=== PATIENT | male | born 1975 ===

== ENCOUNTER 2017-03-01 14:23 | Inpatient (IN) | payer SELFPAY ==
[2017-03-01 14:33] VITALS: BMI 31.6
--- NOTE | 2017-03-01 14:46 | ED PDOC ---
HPI: General Adult Time Seen by Provider: 03/01/17 14:35 Chief Complaint (Nursing): Abdominal Pain Chief Complaint (Provider): abdominal pain History Per: Patient History/Exam Limitations: no limitations Additional Complaint(s): 41yo male comes to the ED complaining of abdominal pain since this morning. Also reports an episode of abdominal pain yesterday which resolved with prilosec. He reports non-bloody vomit 5x episodes, last occurring while enroute to ED. Denies diarrhea, fever, sweats, chills, constipation, urinary symptoms, testicular pain, rectal pain. He took Prilosec, Mylanta & Advil today which didn 't help. Past Medical History Reviewed: Historical Data, Nursing Documentation, Vital Signs Vital Signs: Last Vital Signs Temp 98 F 03/01/17 19:58 Pulse 92 H 03/01/17 19:58 Resp 18 03/01/17 19:58 BP 145/60 03/01/17 19:58 Pulse Ox 99 03/01/17 19:53 - Medical History PMH: Gastritis - Surgical History Surgical History: No Surg Hx - Family History Family History: States: Unknown Family Hx - Living Arrangements Living Arrangements: With Family - Social History Current smoker - smoking cessation education provided: No Alcohol: None - Home Medications Home Medications: Ambulatory Orders Medication Instructions Recorded No Known Home Med 03/01/17 - Allergies Allergies/Adverse Reactions: Allergies Allergy/AdvReac Type Severity Reaction Status Date / Time No Known Allergies Allergy Verified 03/01/17 14:31 Review of Systems ROS Statement: Except As Marked, All Systems Reviewed And Found Negative Constitutional: Negative for: Fever, Chills, Sweats Gastrointestinal: Positive for: Nausea, Vomiting, Abdominal Pain. Negative for : Diarrhea, Constipation, Rectal Pain Genitourinary Male: Negative for: Dysuria, Hematuria, Scrotal Pain, Penile Pain Physical Exam - Reviewed Nursing Documentation Reviewed: Yes Vital Signs Reviewed: Yes - Physical Exam Appears: Positive for: Non-toxic (+moderate painful distress), Uncomfortable Head Exam: Positive for: ATRAUMATIC, NORMAL INSPECTION, NORMOCEPHALIC Skin: Positive for: Warm, Dry Eye Exam: Positive for: EOMI, PERRL ENT: Positive for: Other (tacky mucous membranes.) Cardiovascular/Chest: Positive for: Regular Rate, Rhythm Respiratory: Positive for: Normal Breath Sounds. Negative for: Rales, Rhonchi, Wheezing Gastrointestinal/Abdominal: Positive for: Distended (mild), Guarding (voluntary) , Other (pain is not localizable. +Psoas. -Obturator). Negative for: Mass, Rebound Back: Negative for: L CVA Tenderness, R CVA Tenderness Extremity: Positive for: Normal ROM Neurologic/Psych: Positive for: Alert, Oriented (x3) - Laboratory Results Result Diagrams: 03/01/17 15:30 03/01/17 15:30 - ECG O2 Sat by Pulse Oximetry: 100 Medical Decision Making Medical Decision Makin impression abdominal pain Differential includes obstruction, gastroenteritis, gastritis, appendicitis, diverticulitis, colitis, electrolyte abnormality. Others considered and not listed here. Plan: XR Obstructive Series CT Abd/pel w/ Labs Dextrose Zofran Morphine reassess Labs demonstrate leukocytosis, marked pancreatitis, elevated transaminases and hyperbilirubinemia. LDH added. US also ordered for clinical gallstone pancreatitis. Zosyn ordered. Will need admission for management. Pain slightly improved with medications. 5p LDH elevated as well. Pt still pending US and CT. NELSON Guillory Hospitalist and Dr Bender GI oncall. DW Dr Saeed and Dr Roger Surgery Accession No. : [id number] Patient Name / ID : ALEXYS BEE / [id number] Exam Date : 03/01/2017 18:17:23 ( Approved ) Study Comment : Sex / Age : M / 41Y Creator : Jarad Nelson MD Dictator : Jarad Nelson MD Performing Artist : Teaching Young : Jarad Nelson MD Approver2 : Report Date : 03/01/2017 18:56:06 My Comment : PROCEDURE: CT Abdomen and Pelvis with contrast HISTORY: abd pain COMPARISON: None. TECHNIQUE: Contrast dose: 95 mL Omnipaque 300 Radiation dose: Total exam DLP = 1022.12 mGy-cm. This CT exam was performed using one or more of the following dose reduction techniques: Automated exposure control, adjustment of the mA and/or kV according to patient size, and/or use of iterative reconstruction technique. FINDINGS: LOWER THORAX: Minimal subsegmental atelectasis both lower lobes. LIVER: Diffusely diminished attenuation consistent with fatty infiltration. No mass. No biliary dilatation. Smooth contour. Normal size. GALLBLADDER AND BILE DUCTS: Unremarkable. PANCREAS: No mass. Infiltration of the peripancreatic soft tissues without malachi peripancreatic fluid, consistent with acute pancreatitis. No pancreatic ductal dilatation. SPLEEN: Unremarkable. ADRENALS: Unremarkable. No mass. KIDNEYS AND URETERS: Unremarkable. No hydronephrosis. No solid mass. VASCULATURE: Unremarkable. No aortic aneurysm. BOWEL: No evidence of bowel obstruction. There is a filling defect in the 2nd portion of the duodenum in the expected location of the ampulla. This appears enlarged and may reflect edema resulting from pancreatitis. However, neoplasm cannot be ruled out. Recommend evaluation with endoscopy when clinically feasible. APPENDIX: Normal appendix. PERITONEUM: Unremarkable. No free fluid. No free air. LYMPH NODES: Unremarkable. No enlarged lymph nodes. BLADDER: Unremarkable. REPRODUCTIVE: Normal prostate BONES: No acute fracture. OTHER FINDINGS: None. IMPRESSION: Findings consistent with acute pancreatitis. No peripancreatic fluid collection. Filling defect in the 2nd portion of the duodenum may represent an edematous ampulla but the possibility of a mass must also be considered. Recommend endoscopy when clinically feasible. . Fatty infiltration of the liver. No other significant abnormality. ED OBSERVATION Date of observation admission: 03/01/17 Time of observation admission: 14:56 Disposition - Clinical Impression Clinical Impression: Pancreatitis, Cholelithiasis - Disposition Disposition Time: 15:00 Condition: FAIR - Pt Status Changed To: Hospital Disposition Of: Inpatient - Admit Certification Admit to Inpatient:: After my assessment, the patient will require hospitalization for at least two midnights. This is because of the severity of symptoms shown, intensity of services needed, and/or the medical risk in this patient being treated as an outpatient. - POA Present On Arrival: None Additional Comments - Additional Comments Additional Comments: Scribe Attestation: Documented by Alcides Monahan acting as a scribe for Barbara Amato MD. Provider Scribe Attestation: All medical record entries made by the Scribe were at my direction and personally dictated by me. I have reviewed the chart and agree that the record accurately reflects my personal performance of the history, physical exam, medical decision making, and the department course for this patient. I have also personally directed, reviewed, and agree with the discharge instructions and disposition.
[2017-03-01] MEDS ORDERED: Iohexol 240 (50 ml) PO ONE (14:54)
[2017-03-01] MEDS ORDERED: Sodium Chloride 0.9% 1,000 ML IV STA ×2 (14:55→16:16)
[2017-03-01 15:39] LABS: BASO % 0.3 % (0.0-2.0); HEMATOCRIT 45.2 % (35.0-51.0); LYMPH # 1.6 K/uL (1.0-4.3); LYMPH % 14.4 % (20.0-40.0); MEAN CELL VOLUME 89.3 fl (80.0-94.0); MEAN CORPUSCULAR HEMOGLOBIN 30.1 pg (27.0-31.0); MEAN CORPUSCULAR HGB CONC 33.7 g/dL (33.0-37.0); MEAN PLATELET VOLUME 9.9 fl (7.2-11.7); MONO # 0.6 K/uL (0.0-0.8); MONO % 5.3 % (0.0-10.0); NEUT # 8.8 K/uL (1.8-7.0)
[2017-03-01 15:52] LABS: ALB/GLOB RATIO 1.1 (1.0-2.1); ALKALINE PHOSPHATASE 180 U/L (38-126); ALT/SGPT 643 U/L (21-72); AST/SGOT 435 U/L (17-59); BLOOD UREA NITROGEN 14 mg/dl (9-20); CALCIUM 9.4 mg/dL (8.4-10.2); CARBON DIOXIDE 24 mmol/L (22-30); CHLORIDE 98 mmol/L (98-107); GFR AFRICAN-AMERICAN > 60; GLUCOSE,RANDOM 163 mg/dL (75-110); POTASSIUM 3.8 MMOL/L (3.6-5.0); SODIUM 132 mmol/l (132-148); TOTAL PROTEIN 7.9 G/DL (6.3-8.2)
[2017-03-01 16:00] LABS: PARTIAL THROMBOPLASTIN TIME 22.6 SECONDS (23.3-32.5)
[2017-03-01 16:14] LABS: LIPASE 17719 U/L (23-300)
--- NOTE | 2017-03-01 16:21 | RAD ---
PROCEDURE: Radiographs of the chest and abdomen (obstructive series) HISTORY: abd pain COMPARISON: No prior. TECHNIQUE: AP radiograph of the chest, with upright and supine radiographs of the abdomen. FINDINGS: CHEST: Lungs: Clear. Cardiovascular: Normal size heart. No pulmonary vascular congestion. Pleura: No pleural fluid. No pneumothorax. Other findings: None. ABDOMEN AND PELVIS: Bowel: Unremarkable bowel gas pattern. No evidence of mechanical obstruction. Free air: None. Bones: Unremarkable. Other findings: None. IMPRESSION: Unremarkable radiographs of chest and abdomen. No evidence of mechanical bowel obstruction.
[2017-03-01] MEDS ORDERED: Piperacillin/Tazobact 3.375 gm Inj IVPB ONE (17:04)
[2017-03-01] MEDS ORDERED: Piperacillin/Tazobact 3.375 GM in Sodium Chloride 0.9% 100 ML IV ONE (17:07)
--- NOTE | 2017-03-01 17:45 | CP.PCM.HP ---
History of Present Illness - History of Present Illness History of Present Illness: 41 yo male with history of gastritis came in with generalized abdominal pain since this morning, not relieved with Prilosec which usually takes away his abdominal pain. Pain is severe, continuous and radiates to the back. Also complained of 6 bouts of vomiting which did not affect his pain. Patient denied fever or chills. Also denied chest pain or SOB. Present on Admission - Present on Admission Any Indicators Present on Admission: No History of DVT/PE: No History of Uncontrolled Diabetes: No Urinary Catheter: No Decubitus Ulcer Present: No Review of Systems - Review of Systems All systems: reviewed and no additional remarkable complaints except (aside from those mentioned above, 12 point system review were negative by me) Past Patient History - Past Social History Smoking Status: Former Smoker Chewing Tobacco Use: No Cigar Use: No Alcohol: None Drugs: Denies - GASTROINTESTINAL Hx Gastritis: Yes - PSYCHIATRIC Hx Substance Use: No - SURGICAL HISTORY Hx Surgeries: No - ANESTHESIA Hx Anesthesia: No Meds Allergies/Adverse Reactions: Allergies Allergy/AdvReac Type Severity Reaction Status Date / Time No Known Allergies Allergy Verified 03/01/17 14:31 Physical Exam - Constitutional Appears: No Acute Distress - Head Exam Head Exam: ATRAUMATIC - Eye Exam Eye Exam: absent: Scleral icterus - ENT Exam ENT Exam: Mucous Membranes Moist - Neck Exam Neck exam: Negative for: Meningismus - Respiratory Exam Respiratory Exam: absent: Rhonchi, Wheezes, Respiratory Distress - Cardiovascular Exam Cardiovascular Exam: REGULAR RHYTHM, +S1, +S2 - GI/Abdominal Exam GI & Abdominal Exam: Soft, Tenderness (epigastric area). absent: Rebound, Rigid - Rectal Exam Rectal Exam: Deferred - Extremities Exam Extremities exam: Negative for: pedal edema - Back Exam Back exam: absent: tenderness - Neurological Exam Neurological exam: Alert, Oriented x3 - Psychiatric Exam Psychiatric exam: Normal Affect - Skin Skin Exam: Dry, Intact Results - Vital Signs Recent Vital Signs: Last Vital Signs Temp 98.0 F 03/01/17 14:32 Pulse 94 H 03/01/17 14:32 Resp 16 03/01/17 14:32 BP 146/74 03/01/17 14:32 Pulse Ox 100 03/01/17 17:33 - Labs Result Diagrams: 03/01/17 15:30 03/01/17 15:30 Labs: Laboratory Results - last 24 hr 03/01/17 03/01/17 03/01/17 15:30 15:30 15:30 WBC 11.0 H RBC 5.07 Hgb 15.3 Hct 45.2 MCV 89.3 MCH 30.1 MCHC 33.7 RDW 13.0 Plt Count 150 MPV 9.9 Neut % (Auto) 80.0 H Lymph % (Auto) 14.4 L Hooker % (Auto) 5.3 Eos % (Auto) 0.0 Baso % (Auto) 0.3 Neut # 8.8 H Lymph # 1.6 Hooker # 0.6 Eos # 0.0 Baso # 0.0 PT INR APTT Sodium 132 Potassium 3.8 Chloride 98 Carbon Dioxide 24 Anion Gap 14 BUN 14 Creatinine 0.7 L Est GFR ( Amer) > 60 Est GFR (Non-Af Amer) > 60 Random Glucose 163 H Lactic Acid 2.0 Calcium 9.4 Total Bilirubin 3.0 H AST 435 H ALT 643 H Alkaline Phosphatase 180 H Lactate Dehydrogenase Total Protein 7.9 Albumin 4.1 Globulin 3.8 Albumin/Globulin Ratio 1.1 Lipase 36321 H 03/01/17 03/01/17 15:30 16:30 WBC RBC Hgb Hct MCV MCH MCHC RDW Plt Count MPV Neut % (Auto) Lymph % (Auto) Hooker % (Auto) Eos % (Auto) Baso % (Auto) Neut # Lymph # Hooker # Eos # Baso # PT 10.6 INR 1.02 APTT 22.6 L Sodium Potassium Chloride Carbon Dioxide Anion Gap BUN Creatinine Est GFR ( Amer) Est GFR (Non-Af Amer) Random Glucose Lactic Acid Calcium Total Bilirubin AST ALT Alkaline Phosphatase Lactate Dehydrogenase 1252 H Total Protein Albumin Globulin Albumin/Globulin Ratio Lipase Assessment & Plan (1) Pancreatitis Status: Acute Comment: admit to med/surg. NPO. IV hydration with NSS 200cc/hr. Morphine 2mg IV q 4hrs prn. Zofran 4mg IV q 4hrs prn. Protonix 40mg IV daily. surgical cxonsult with Dr Saeed. GI consult with [facility]. Zosyn 3.375gm IV q 6hrs
[2017-03-01] MEDS ORDERED: Iohexol 300 100 ML IJ ONE (17:54)
[2017-03-01] MEDS ORDERED: Sodium Chloride 0.9% 50 ML IV ONE (17:54)
--- NOTE | 2017-03-01 18:03 | US ---
HISTORY: abd pain elevated LFTs COMPARISON: None available TECHNIQUE: Sonographic evaluation of the abdomen. FINDINGS: LIVER: Measures 13.9 cm in sagittal dimension. Echogenic liver may be seen in setting of hepatic parenchymal disease or fatty infiltration. No focal hepatic mass identified. The main portal vein appears patent with normal directional flow. No intrahepatic bile duct dilatation. GALLBLADDER: Gallstones. No gallbladder wall thickening. Negative sonographic Youssef's sign as assessed by the flower shop laborer/designer. COMMON BILE DUCT: Measures 4 mm. PANCREAS: Not well visualized. RIGHT KIDNEY: Measures 11.5 x 6.0 x 6.3cm. 8 x 4 x 8 mm rounded echogenic focus without clear posterior acoustic shadowing ; considerations include calculus or small angiomyolipoma. No hydronephrosis identified. LEFT KIDNEY: Measures 11.0 x 5.1 x 4.9 cm. No obstructing calculus or hydronephrosis identified. SPLEEN: Measures approximately 10.0 x 4.8 x 5.6 cm. AORTA: Limited views appear grossly unremarkable. IVC: Limited views appear grossly unremarkable. OTHER FINDINGS: None. IMPRESSION: Cholelithiasis. 8 x 4 x 8 mm rounded echogenic focus without clear posterior acoustic shadowing ; considerations include calculus or small angiomyolipoma. Echogenic liver may be seen in setting of hepatic parenchymal disease or fatty infiltration.
--- NOTE | 2017-03-01 18:57 | CT ---
PROCEDURE: CT Abdomen and Pelvis with contrast HISTORY: abd pain COMPARISON: None. TECHNIQUE: Contrast dose: 95 mL Omnipaque 300 Radiation dose: Total exam DLP = 1022.12 mGy-cm. This CT exam was performed using one or more of the following dose reduction techniques: Automated exposure control, adjustment of the mA and/or kV according to patient size, and/or use of iterative reconstruction technique. FINDINGS: LOWER THORAX: Minimal subsegmental atelectasis both lower lobes. LIVER: Diffusely diminished attenuation consistent with fatty infiltration. No mass. No biliary dilatation. Smooth contour. Normal size. GALLBLADDER AND BILE DUCTS: Unremarkable. PANCREAS: No mass. Infiltration of the peripancreatic soft tissues without malachi peripancreatic fluid, consistent with acute pancreatitis. No pancreatic ductal dilatation. SPLEEN: Unremarkable. ADRENALS: Unremarkable. No mass. KIDNEYS AND URETERS: Unremarkable. No hydronephrosis. No solid mass. VASCULATURE: Unremarkable. No aortic aneurysm. BOWEL: No evidence of bowel obstruction. There is a filling defect in the 2nd portion of the duodenum in the expected location of the ampulla. This appears enlarged and may reflect edema resulting from pancreatitis. However, neoplasm cannot be ruled out. Recommend evaluation with endoscopy when clinically feasible. APPENDIX: Normal appendix. PERITONEUM: Unremarkable. No free fluid. No free air. LYMPH NODES: Unremarkable. No enlarged lymph nodes. BLADDER: Unremarkable. REPRODUCTIVE: Normal prostate BONES: No acute fracture. OTHER FINDINGS: None. IMPRESSION: Findings consistent with acute pancreatitis. No peripancreatic fluid collection. Filling defect in the 2nd portion of the duodenum may represent an edematous ampulla but the possibility of a mass must also be considered. Recommend endoscopy when clinically feasible. . Fatty infiltration of the liver. No other significant abnormality.
[2017-03-01 20:20] LABS: RBC URINE 4 /hpf (0-3); URINE BACTERIA RARE (<OCC); URINE BILIRUBIN NEGATIVE (NEGATIVE); URINE BLOOD NEGATIVE (NEGATIVE); URINE COLOR AMBER (YELLOW); URINE GLUCOSE (UA) NEG (Normal); URINE KETONE NEGATIVE (NEGATIVE); URINE LEUKOCYTE ESTERASE NEG Leu/uL (Negative); URINE PROTEIN NEGATIVE (NEGATIVE); WBC URINE 2 /hpf (0-5)
--- NOTE | 2017-03-01 21:04 | CP.PCM.CON ---
<aRchana Roger - Last Filed: 03/01/17 21:10> History of Present Illness - History of Present Illness History of Present Illness: GENERAL SURGERY CONSULT NOTE FOR DR. SAEED 41yo M with PMHx of gastritis presents to the ED with abdominal pain. The pain began at 3AM and is located in the epigastric area and goes to his back. occasionally goes to the LLQ and RLQ areas. He had associated vomiting, 6 times , non bloody. He denies diarrhea, fever, chills. He tried Prilosec, Advil, and Mylanta at home which did not relieve his symptoms. Additionally, he had an episode of abdominal pain yesterday which did resolve after Prilosec. PMHx: gastritis Surgeries: none Allergies: none Social history: quit drinking and smoking 22 years ago, former heavy etoh use Review of Systems - Review of Systems All systems: reviewed and no additional remarkable complaints except (as per HPI ) Past Patient History - Past Social History Alcohol: None - GASTROINTESTINAL Hx Gastritis: Yes - PSYCHIATRIC Hx Substance Use: No - SURGICAL HISTORY Hx Surgeries: No - ANESTHESIA Hx Anesthesia: No Meds Allergies/Adverse Reactions: Allergies Allergy/AdvReac Type Severity Reaction Status Date / Time No Known Allergies Allergy Verified 03/01/17 14:31 - Medications Medications: Current Medications Dextrose/Sodium Chloride (Dextrose 5%-0.9% Ns 500 Ml) 1,000 mls @ 100 mls/hr IV .Q10H [facility] Last Admin: 03/01/17 17:13 Dose: 100 mls/hr Sodium Chloride (Sodium Chloride 0.9%) 1,000 mls @ 200 mls/hr IV .Q5H JJ Piperacillin Sod/Tazobactam (Sod 4.5 gm/ Sodium Chloride) 100 mls @ 100 mls/hr IVPB Q6 JJ Morphine Sulfate (Morphine) 2 mg IVP Q4 PRN PRN Reason: Pain, moderate (4-7) Ondansetron HCl (Zofran Inj) 4 mg IVP Q4H PRN PRN Reason: Nausea/Vomiting Pantoprazole Sodium (Protonix Inj) 40 mg IVP DAILY JJ Physical Exam - Constitutional Appears: Well, Non-toxic, No Acute Distress - Head Exam Head Exam: ATRAUMATIC, NORMAL INSPECTION - Respiratory Exam Respiratory Exam: NORMAL BREATHING PATTERN. absent: Respiratory Distress - Cardiovascular Exam Cardiovascular Exam: +S1, +S2 - GI/Abdominal Exam GI & Abdominal Exam: Soft, Tenderness (mild tenderness epigastric area). absent : Distended, Firm, Guarding, Rebound, Rigid - Extremities Exam Extremities exam: Positive for: normal inspection. Negative for: calf tenderness, pedal edema - Neurological Exam Neurological exam: Alert, CN II-XII Intact, Oriented x3 - Psychiatric Exam Psychiatric exam: Normal Affect, Normal Mood - Skin Skin Exam: Dry, Normal Color, Warm Results - Vital Signs Recent Vital Signs: Last Vital Signs Temp 98 F 03/01/17 19:58 Pulse 92 H 03/01/17 19:58 Resp 18 03/01/17 19:58 BP 145/60 03/01/17 19:58 Pulse Ox 100 03/01/17 20:17 - Labs Result Diagrams: 03/01/17 15:30 03/01/17 15:30 Labs: Laboratory Results - last 24 hr 03/01/17 03/01/17 03/01/17 15:30 15:30 15:30 WBC 11.0 H RBC 5.07 Hgb 15.3 Hct 45.2 MCV 89.3 MCH 30.1 MCHC 33.7 RDW 13.0 Plt Count 150 MPV 9.9 Neut % (Auto) 80.0 H Lymph % (Auto) 14.4 L [place] % (Auto) 5.3 Eos % (Auto) 0.0 Baso % (Auto) 0.3 Neut # 8.8 H Lymph # 1.6 [place] # 0.6 Eos # 0.0 Baso # 0.0 PT INR APTT Sodium 132 Potassium 3.8 Chloride 98 Carbon Dioxide 24 Anion Gap 14 BUN 14 Creatinine 0.7 L Est GFR ( Amer) > 60 Est GFR (Non-Af Amer) > 60 Random Glucose 163 H Lactic Acid 2.0 Calcium 9.4 Total Bilirubin 3.0 H AST 435 H ALT 643 H Alkaline Phosphatase 180 H Lactate Dehydrogenase Total Protein 7.9 Albumin 4.1 Globulin 3.8 Albumin/Globulin Ratio 1.1 Lipase 85755 H Urine Color Urine Clarity Urine pH Ur Specific [place] Urine Protein Urine Glucose (UA) Urine Ketones Urine Blood Urine Nitrate Urine Bilirubin Urine Urobilinogen Ur Leukocyte Esterase Urine RBC (Auto) Urine Microscopic WBC Ur Squamous Epith Cells Urine Bacteria 03/01/17 03/01/17 03/01/17 15:30 16:30 19:57 WBC RBC Hgb Hct MCV MCH MCHC RDW Plt Count MPV Neut % (Auto) Lymph % (Auto) [place] % (Auto) Eos % (Auto) Baso % (Auto) Neut # Lymph # [place] # Eos # Baso # PT 10.6 INR 1.02 APTT 22.6 L Sodium Potassium Chloride Carbon Dioxide Anion Gap BUN Creatinine Est GFR ( Amer) Est GFR (Non-Af Amer) Random Glucose Lactic Acid Calcium Total Bilirubin AST ALT Alkaline Phosphatase Lactate Dehydrogenase 1252 H Total Protein Albumin Globulin Albumin/Globulin Ratio Lipase Urine Color [place] Urine Clarity Slighty-cloudy Urine pH 5.0 Ur Specific [place] 1.018 Urine Protein Negative Urine Glucose (UA) Neg Urine Ketones Negative Urine Blood Negative Urine Nitrate Negative Urine Bilirubin Negative Urine Urobilinogen 2.0 Ur Leukocyte Esterase Neg Urine RBC (Auto) 4 H Urine Microscopic WBC 2 Ur Squamous Epith Cells < 1 Urine Bacteria Rare Assessment & Plan - Assessment and Plan (Free Text) Assessment: 41yo M with PMHx of gastritis who was found to have pancreatitis likely secondary to gallstones - Afebrile, VSS - WBC 11 - T bili elevated at 3.0 - AST 435, ALT 643, Alk phos 180 - Lipase elevated at 17,719 - US: gallstones, no signs of cholecystitis, CBD 4mm - CT: infiltration of peripancreatic soft tissues without malachi peripancreatic fluid, consistent with acute pancreatitis; filling defect in the 2nd portion of the duodenum in the expected location of the ampulla, may be edema from pancreatitis but neoplasm cannot be ruled out - MRCP done, will follow up with results - Recommend GI evaluation - NPO, IV fluids - Discussed plan with Dr. Christophe Roger PGY-2 <True Saeed - Last Filed: 03/02/17 14:04> History of Present Illness - History of Present Illness History of Present Illness: Patient was seen and examined at the bedside. Agree with resident's note above Meds - Medications Medications: Current Medications Sodium Chloride (Sodium Chloride 0.9%) 1,000 mls @ 200 mls/hr IV .Q5H [facility] Last Admin: 03/02/17 08:20 Dose: 200 mls/hr Piperacillin Sod/Tazobactam (Sod 4.5 gm/ Sodium Chloride) 100 mls @ 100 mls/hr IVPB Q6 [facility] Last Admin: 03/02/17 09:02 Dose: 100 mls/hr Morphine Sulfate (Morphine) 2 mg IVP Q4 PRN PRN Reason: Pain, moderate (4-7) Last Admin: 03/02/17 12:13 Dose: 2 mg Ondansetron HCl (Zofran Inj) 4 mg IVP Q4H PRN PRN Reason: Nausea/Vomiting Pantoprazole Sodium (Protonix Inj) 40 mg IVP DAILY [facility] Last Admin: 03/02/17 08:14 Dose: 40 mg Results - Vital Signs Recent Vital Signs: Last Vital Signs Temp 98.7 F 03/02/17 07:23 Pulse 86 03/02/17 07:23 Resp 18 03/02/17 07:23 BP 121/76 03/02/17 07:23 Pulse Ox 95 03/02/17 07:23 - Labs Result Diagrams: 03/02/17 06:30 03/02/17 06:30 Labs: Laboratory Results - last 24 hr 03/01/17 03/01/17 03/01/17 15:30 15:30 15:30 WBC 11.0 H RBC 5.07 Hgb 15.3 Hct 45.2 MCV 89.3 MCH 30.1 MCHC 33.7 RDW 13.0 Plt Count 150 MPV 9.9 Neut % (Auto) 80.0 H Lymph % (Auto) 14.4 L [place] % (Auto) 5.3 Eos % (Auto) 0.0 Baso % (Auto) 0.3 Neut # 8.8 H Lymph # 1.6 [place] # 0.6 Eos # 0.0 Baso # 0.0 PT INR APTT Sodium 132 Potassium 3.8 Chloride 98 Carbon Dioxide 24 Anion Gap 14 BUN 14 Creatinine 0.7 L Est GFR ( Amer) > 60 Est GFR (Non-Af Amer) > 60 Random Glucose 163 H Lactic Acid 2.0 Calcium 9.4 Total Bilirubin 3.0 H AST 435 H ALT 643 H Alkaline Phosphatase 180 H Lactate Dehydrogenase Total Protein 7.9 Albumin 4.1 Globulin 3.8 Albumin/Globulin Ratio 1.1 Lipase 02376 H Urine Color Urine Clarity Urine pH Ur Specific [place] Urine Protein Urine Glucose (UA) Urine Ketones Urine Blood Urine Nitrate Urine Bilirubin Urine Urobilinogen Ur Leukocyte Esterase Urine RBC (Auto) Urine Microscopic WBC Ur Squamous Epith Cells Urine Bacteria 03/01/17 03/01/17 03/01/17 15:30 16:30 19:57 WBC RBC Hgb Hct MCV MCH MCHC RDW Plt Count MPV Neut % (Auto) Lymph % (Auto) [place] % (Auto) Eos % (Auto) Baso % (Auto) Neut # Lymph # [place] # Eos # Baso # PT 10.6 INR 1.02 APTT 22.6 L Sodium Potassium Chloride Carbon Dioxide Anion Gap BUN Creatinine Est GFR ( Amer) Est GFR (Non-Af Amer) Random Glucose Lactic Acid Calcium Total Bilirubin AST ALT Alkaline Phosphatase Lactate Dehydrogenase 1252 H Total Protein Albumin Globulin Albumin/Globulin Ratio Lipase Urine Color [place] Urine Clarity Slighty-cloudy Urine pH 5.0 Ur Specific [place] 1.018 Urine Protein Negative Urine Glucose (UA) Neg Urine Ketones Negative Urine Blood Negative Urine Nitrate Negative Urine Bilirubin Negative Urine Urobilinogen 2.0 Ur Leukocyte Esterase Neg Urine RBC (Auto) 4 H Urine Microscopic WBC 2 Ur Squamous Epith Cells < 1 Urine Bacteria Rare 03/02/17 03/02/17 03/02/17 06:30 06:30 06:30 WBC 10.1 RBC 4.58 Hgb 13.8 Hct 41.0 MCV 89.4 MCH 30.0 MCHC 33.6 RDW 13.0 Plt Count 135 MPV 10.0 Neut % (Auto) 70.0 Lymph % (Auto) 21.2 [place] % (Auto) 7.3 Eos % (Auto) 1.0 Baso % (Auto) 0.5 Neut # 7.0 Lymph # 2.1 [place] # 0.7 Eos # 0.1 Baso # 0.1 PT 11.5 H INR 1.11 H APTT 23.4 Sodium 139 Potassium 4.0 Chloride 103 Carbon Dioxide 26 Anion Gap 14 BUN 12 Creatinine 0.9 Est GFR ( Amer) > 60 Est GFR (Non-Af Amer) > 60 Random Glucose 121 H Lactic Acid Calcium 8.2 L Total Bilirubin 1.5 H AST 167 H D ALT 433 H D Alkaline Phosphatase 138 H D Lactate Dehydrogenase 611 Total Protein 6.3 Albumin 3.3 L Globulin 3.1 Albumin/Globulin Ratio 1.1 Lipase 3758 H Urine Color Urine Clarity Urine pH Ur Specific [place] Urine Protein Urine Glucose (UA) Urine Ketones Urine Blood Urine Nitrate Urine Bilirubin Urine Urobilinogen Ur Leukocyte Esterase Urine RBC (Auto) Urine Microscopic WBC Ur Squamous Epith Cells Urine Bacteria Assessment & Plan - Assessment and Plan (Free Text) Plan: - NPO - IV fluids - pain control - Zofran prn - Repeat labs in am - Follow up MRCP results - Will follow
--- NOTE | 2017-03-01 21:38 | MRI ---
EXAM: MR Abdomen Without Intravenous Contrast, MRCP Protocol CLINICAL HISTORY: 41 years old, male; Pain; Abdominal pain; Epigastric; Additional info: Gallstone pancreatits TECHNIQUE: Multiplanar magnetic resonance images of the abdomen without intravenous contrast using MRCP protocol. EXAM DATE/TIME: 03/01/2017 5:59 PM COMPARISON: No relevant prior studies available. FINDINGS: LIMITATIONS: Exam is limited by significant streak/motion artifact. BILE DUCTS: Common bile duct measures 6.5 mm in diameter, which is minimally dilated (normal less than 6 mm). No common bile duct stones are visualized. GALLBLADDER: Extensive gallstones, too numerous to count, including stones in the gallbladder neck region. No evidence of significant pericholecystic fluid. LIVER: Diffuse fatty infiltration of the liver. No liver lesions are seen. PANCREAS: As seen on the recent abdominal CT, there is peripancreatic fluid, greatest abutting the pancreatic tail, suspicious for acute pancreatitis. No evidence of a focal peripancreatic fluid collection. No evidence of significant pancreatic ductal dilatation. SPLEEN: No acute abnormality of the spleen identified. KIDNEYS AND URETERS: Minimal bilateral perinephric fluid. No evidence of hydroureteronephrosis. IMPRESSION: - Limited exam due to motion artifact. - Findings suspicious for acute pancreatitis. Recommend correlation with pancreatic enzyme values. - Minimally dilated common bile duct, 6.5 mm, cause not identified. Recommend correlation with LFTs for laboratory evidence of biliary obstruction. - Extensive gallstones. No evidence of cholecystitis. - See above for remaining findings.
[2017-03-01] MEDS: Piperacillin/Tazobact 4.5 GM in Sodium Chloride 0.9% 100 ML IVPB SCH (21:54)
[2017-03-02] MEDS: Sodium Chloride 0.9% 1,000 ML IV SCH ×4 (02:05→21:35)
[2017-03-02] MEDS: Piperacillin/Tazobact 4.5 GM in Sodium Chloride 0.9% 100 ML IVPB SCH ×4 (03:57→21:37)
[2017-03-02 07:46] LABS: BASO # 0.1 K/uL (0.0-0.2); BASO % 0.5 % (0.0-2.0); EOS # 0.1 K/uL (0.0-0.7); LYMPH # 2.1 K/uL (1.0-4.3); LYMPH % 21.2 % (20.0-40.0); MEAN CELL VOLUME 89.4 fl (80.0-94.0); MEAN CORPUSCULAR HGB CONC 33.6 g/dL (33.0-37.0); MONO # 0.7 K/uL (0.0-0.8); MONO % 7.3 % (0.0-10.0); WHITE BLOOD COUNT 10.1 K/uL (4.8-10.8)
[2017-03-02 08:04] LABS: PARTIAL THROMBOPLASTIN TIME 23.4 SECONDS (23.3-32.5)
[2017-03-02 08:10] LABS: ALB/GLOB RATIO 1.1 (1.0-2.1); ALKALINE PHOSPHATASE 138 U/L (38-126); ALT/SGPT 433 U/L (21-72); AST/SGOT 167 U/L (17-59); BILIRUBIN,TOTAL 1.5 mg/dl (0.2-1.3); BLOOD UREA NITROGEN 12 mg/dl (9-20); CALCIUM 8.2 mg/dL (8.4-10.2); CARBON DIOXIDE 26 mmol/L (22-30); CHLORIDE 103 mmol/L (98-107); GFR AFRICAN-AMERICAN > 60; GLUCOSE,RANDOM 121 mg/dL (75-110); SODIUM 139 mmol/l (132-148); TOTAL PROTEIN 6.3 G/DL (6.3-8.2)
[2017-03-02 08:25] LABS: LIPASE 3758 U/L (23-300)
--- NOTE | 2017-03-02 09:30 | CP.PCM.PN ---
<Liliana Koch - Last Filed: 03/02/17 09:32> Subjective - Date & Time of Evaluation Date of Evaluation: 03/02/17 Time of Evaluation: 08:45 - Subjective Subjective: GENERAL SURGERY PROGRESS NOTE- Dr. Saeed 41 y/o Male seen at bedside concerning gastritis & pancreatitis. Pt remains NPO with no acute overnight breakthrough abdominal pain. Noted LUQ and LLQ pain. Deneis vommiting since admission. He denies diarrhea, fever, chills. Objective - Vital Signs/Intake and Output Vital Signs (last 24 hours): Temp Pulse Resp BP Pulse Ox 98.7 F 86 18 121/76 95 03/02/17 07:23 03/02/17 07:23 03/02/17 07:23 03/02/17 07:23 03/02/17 07:23 Intake and Output: 03/02/17 03/02/17 06:59 18:59 Intake Total 1000 Balance 1000 - Medications Medications: Current Medications Sodium Chloride (Sodium Chloride 0.9%) 1,000 mls @ 200 mls/hr IV .Q5H [facility] Last Admin: 03/02/17 08:20 Dose: 200 mls/hr Piperacillin Sod/Tazobactam (Sod 4.5 gm/ Sodium Chloride) 100 mls @ 100 mls/hr IVPB Q6 [facility] Last Admin: 03/02/17 09:02 Dose: 100 mls/hr Morphine Sulfate (Morphine) 2 mg IVP Q4 PRN PRN Reason: Pain, moderate (4-7) Ondansetron HCl (Zofran Inj) 4 mg IVP Q4H PRN PRN Reason: Nausea/Vomiting Pantoprazole Sodium (Protonix Inj) 40 mg IVP DAILY [facility] Last Admin: 03/02/17 08:14 Dose: 40 mg - Labs Labs: 03/02/17 06:30 03/02/17 06:30 PT 11.5 SECONDS (9.6-11.2) H 03/02/17 06:30 INR 1.11 (0.92-1.08) H 03/02/17 06:30 APTT 23.4 SECONDS (23.3-32.5) 03/02/17 06:30 - Constitutional Appears: Non-toxic, No Acute Distress - Eye Exam Eye Exam: EOMI, Normal appearance - ENT Exam ENT Exam: Mucous Membranes Moist, Normal Exam - Respiratory Exam Respiratory Exam: NORMAL BREATHING PATTERN. absent: Chest Wall Tenderness, Decreased Breath Sounds - GI/Abdominal Exam GI & Abdominal Exam: Firm (right upper half of abdomen ), Rigid, Tenderness ( Right Upper quadrant, supra umbillical ), Normal Bowel Sounds - Neurological Exam Neurological Exam: Alert, Awake, Oriented x3 - Psychiatric Exam Psychiatric exam: Normal Affect, Normal Mood - Skin Skin Exam: Intact, Normal Color, Warm Assessment and Plan - Assessment and Plan (Free Text) Assessment: 41yo M with PMHx of gastritis who was found to have pancreatitis likely secondary to gallstones Plan: Pt seen and evalauted. Remain NPO Continue IV fluids MRCP results show - Minimal CBD dilation of 6.5mm, extensive gallstones, and acute pancreatitis absent pancreatic duct dilation. GI consult pending. will continue to follow. Discussed with Dr. Saeed <True Saeed - Last Filed: 03/02/17 14:11> Subjective - Date & Time of Evaluation Time of Evaluation: 13:25 - Subjective Subjective: Patient was seen and examined at the bedside. Agree with resident's note above Objective - Vital Signs/Intake and Output Vital Signs (last 24 hours): Temp Pulse Resp BP Pulse Ox 98.7 F 86 18 121/76 95 03/02/17 07:23 03/02/17 07:23 03/02/17 07:23 03/02/17 07:23 03/02/17 07:23 Intake and Output: 03/02/17 03/02/17 06:59 18:59 Intake Total 1000 Balance 1000 - Medications Medications: Current Medications Sodium Chloride (Sodium Chloride 0.9%) 1,000 mls @ 200 mls/hr IV .Q5H JJ Last Admin: 03/02/17 08:20 Dose: 200 mls/hr Piperacillin Sod/Tazobactam (Sod 4.5 gm/ Sodium Chloride) 100 mls @ 100 mls/hr IVPB Q6 JJ Last Admin: 03/02/17 09:02 Dose: 100 mls/hr Morphine Sulfate (Morphine) 2 mg IVP Q4 PRN PRN Reason: Pain, moderate (4-7) Last Admin: 03/02/17 12:13 Dose: 2 mg Ondansetron HCl (Zofran Inj) 4 mg IVP Q4H PRN PRN Reason: Nausea/Vomiting Pantoprazole Sodium (Protonix Inj) 40 mg IVP DAILY JJ Last Admin: 03/02/17 08:14 Dose: 40 mg - Labs Labs: 03/02/17 06:30 03/02/17 06:30 PT 11.5 SECONDS (9.6-11.2) H 03/02/17 06:30 INR 1.11 (0.92-1.08) H 03/02/17 06:30 APTT 23.4 SECONDS (23.3-32.5) 03/02/17 06:30 Assessment and Plan - Assessment and Plan (Free Text) Plan: - Keep NPO - IV fluids - Pain control - Zofran prn - repeat labs in am - Will need cholecystectomy once LFTs and pancreatitis improve
--- NOTE | 2017-03-02 11:07 | CP.PCM.PN ---
Subjective - Date & Time of Evaluation Date of Evaluation: 03/02/17 Time of Evaluation: 10:40 - Subjective Subjective: No fever Still with abd pain but better no nausea nor vomiting no CP no SOB good urine output 1 Objective - Vital Signs/Intake and Output Vital Signs (last 24 hours): Temp Pulse Resp BP Pulse Ox 98.7 F 86 18 121/76 95 03/02/17 07:23 03/02/17 07:23 03/02/17 07:23 03/02/17 07:23 03/02/17 07:23 Intake and Output: 03/02/17 03/02/17 06:59 18:59 Intake Total 1000 Balance 1000 - Medications Medications: Current Medications Sodium Chloride (Sodium Chloride 0.9%) 1,000 mls @ 200 mls/hr IV .Q5H [facility] Last Admin: 03/02/17 08:20 Dose: 200 mls/hr Piperacillin Sod/Tazobactam (Sod 4.5 gm/ Sodium Chloride) 100 mls @ 100 mls/hr IVPB Q6 [facility] Last Admin: 03/02/17 09:02 Dose: 100 mls/hr Morphine Sulfate (Morphine) 2 mg IVP Q4 PRN PRN Reason: Pain, moderate (4-7) Ondansetron HCl (Zofran Inj) 4 mg IVP Q4H PRN PRN Reason: Nausea/Vomiting Pantoprazole Sodium (Protonix Inj) 40 mg IVP DAILY [facility] Last Admin: 03/02/17 08:14 Dose: 40 mg - Labs Labs: 03/02/17 06:30 03/02/17 06:30 PT 11.5 SECONDS (9.6-11.2) H 03/02/17 06:30 INR 1.11 (0.92-1.08) H 03/02/17 06:30 APTT 23.4 SECONDS (23.3-32.5) 03/02/17 06:30 - Constitutional Appears: No Acute Distress - Head Exam Head Exam: ATRAUMATIC, NORMAL INSPECTION, NORMOCEPHALIC - Eye Exam Eye Exam: EOMI, Normal appearance, PERRL Pupil Exam: NORMAL ACCOMODATION - ENT Exam ENT Exam: Mucous Membranes Dry, Normal External Ear Exam - Neck Exam Neck Exam: Full ROM. absent: Meningismus - Respiratory Exam Respiratory Exam: NORMAL BREATHING PATTERN. absent: Respiratory Distress - Cardiovascular Exam Cardiovascular Exam: REGULAR RHYTHM, +S1, +S2 - GI/Abdominal Exam GI & Abdominal Exam: Tenderness, Normal Bowel Sounds Additional comments: upper abdominal tenderness - Extremities Exam Extremities Exam: Full ROM, Normal Capillary Refill, Normal Inspection. absent : Calf Tenderness - Back Exam Back Exam: Full ROM, NORMAL INSPECTION. absent: CVA tenderness (L), CVA tenderness (R), paraspinal tenderness - Neurological Exam Neurological Exam: Alert, Awake, CN II-XII Intact, Normal Gait, Oriented x3 Neuro motor strength exam: Left Upper Extremity: 5, Right Upper Extremity: 5, Left Lower Extremity: 5, Right Lower Extremity: 5 - Psychiatric Exam Psychiatric exam: Normal Affect, Normal Mood - Skin Skin Exam: Dry, Normal Color, Warm Assessment and Plan (1) Acute pancreatitis Status: Acute (2) Cholelithiasis Status: Acute (3) Abnormal LFTs Status: Acute (4) DVT prophylaxis Status: Acute - Assessment and Plan (Free Text) Assessment: 41 y/o gent , no significant PMH, no hx of ETOH, came bec of abd pain and N/V. CT of abd :Findings consistent with acute pancreatitis. No peripancreatic fluid collection. Filling defect in the 2nd portion of the duodenum may represent an edematous ampulla but the possibility of a mass must also be considered. Recommend endoscopy when clinically feasible. . Fatty infiltration of the liver. No other significant abnormality. At present, pt's pain is improving. (1) Acute pancreatitis, likely Gallstone Pancreatitis Status: Acute CT showed acute Pancreatitis change, Gallstones Lipase markedly elevated to 17K NPO IVF hydration 200 ml /hr Pain mgt cont IV Zosyn GI consulted Surgery consulted MRCP: - Limited exam due to motion artifact. - Findings suspicious for acute pancreatitis. Recommend correlation with pancreatic enzyme values. - Minimally dilated common bile duct, 6.5 mm, cause not identified. Recommend correlation with LFTs for laboratory evidence of biliary obstruction. - Extensive gallstones. No evidence of cholecystitis. (2) Cholelithiasis Status: Acute as above (3) Abnormal LFTs Status: Acute ? Choledocholithiasis monitor LFTs (4) DVT prophylaxis Status: Acute lovenox
[2017-03-02] MEDS ORDERED: Enoxaparin 40 mg Syringe SC STA (11:10)
--- NOTE | 2017-03-02 20:48 | CP.PCM.CON ---
History of Present Illness - History of Present Illness History of Present Illness: 41 yo male admitted after experiencing severe upper abdominal pain associated with nausea and vomiting . Previously was well Review of Systems - Constitutional Constitutional: absent: Chills - EENT Eyes: absent: Blind Spots Nose/Mouth/Throat: absent: Nasal Congestion - Cardiovascular Cardiovascular: absent: Claudication - Respiratory Respiratory: absent: Cough - Gastrointestinal Gastrointestinal: As Per HPI - Genitourinary Genitourinary: absent: Change in Urinary Stream Past Patient History - Past Medical History & Family History Past Medical History?: Yes - Past Social History Alcohol: None - CARDIAC Hx Cardiac Disorders: No - PULMONARY Hx Respiratory Disorders: No - NEUROLOGICAL Hx Neurological Disorder: No - HEENT Hx HEENT Problems: No - RENAL Hx Chronic Kidney Disease: No - ENDOCRINE/METABOLIC Hx Endocrine Disorders: No - HEMATOLOGICAL/ONCOLOGICAL Hx Blood Disorders: No - INTEGUMENTARY Hx Dermatological Problems: No - MUSCULOSKELETAL/RHEUMATOLOGICAL Hx Musculoskeletal Disorders: No Hx Falls: No - GASTROINTESTINAL Hx Gastritis: Yes - GENITOURINARY/GYNECOLOGICAL Hx Genitourinary Disorders: No - PSYCHIATRIC Hx Substance Use: No - SURGICAL HISTORY Hx Surgeries: No - ANESTHESIA Hx Anesthesia: No Meds Allergies/Adverse Reactions: Allergies Allergy/AdvReac Type Severity Reaction Status Date / Time No Known Allergies Allergy Verified 03/01/17 14:31 - Medications Medications: Current Medications Acetaminophen (Tylenol 650 Mg Supp) 650 mg PA Q6 PRN PRN Reason: Fever >100.4 F Last Admin: 03/02/17 15:37 Dose: 650 mg Enoxaparin Sodium (Lovenox) 40 mg SC DAILY JJ PRN Reason: Protocol Sodium Chloride (Sodium Chloride 0.9%) 1,000 mls @ 200 mls/hr IV .Q5H [facility] Last Admin: 03/02/17 15:17 Dose: 200 mls/hr Piperacillin Sod/Tazobactam (Sod 4.5 gm/ Sodium Chloride) 100 mls @ 100 mls/hr IVPB Q6 [facility] Last Admin: 03/02/17 15:18 Dose: 100 mls/hr Morphine Sulfate (Morphine) 2 mg IVP Q4 PRN PRN Reason: Pain, moderate (4-7) Last Admin: 03/02/17 17:26 Dose: 2 mg Ondansetron HCl (Zofran Inj) 4 mg IVP Q4H PRN PRN Reason: Nausea/Vomiting Pantoprazole Sodium (Protonix Inj) 40 mg IVP DAILY JJ Last Admin: 03/02/17 08:14 Dose: 40 mg Physical Exam - Head Exam Head Exam: NORMAL INSPECTION - Eye Exam Pupil Exam: PERRL - ENT Exam ENT Exam: Mucous Membranes Moist - Respiratory Exam Respiratory Exam: Clear to Auscultation Bilateral - Cardiovascular Exam Cardiovascular Exam: REGULAR RHYTHM, +S1, +S2 - GI/Abdominal Exam GI & Abdominal Exam: Normal Bowel Sounds, Soft, Tenderness Additional comments: moderately distended Results - Vital Signs Recent Vital Signs: Last Vital Signs Temp 100.4 F H 03/02/17 17:22 Pulse 89 03/02/17 15:47 Resp 20 03/02/17 15:47 BP 124/77 03/02/17 15:47 Pulse Ox 96 03/02/17 15:47 - Labs Result Diagrams: 03/02/17 06:30 03/02/17 06:30 Labs: Laboratory Results - last 24 hr 03/02/17 03/02/17 03/02/17 06:30 06:30 06:30 WBC 10.1 RBC 4.58 Hgb 13.8 Hct 41.0 MCV 89.4 MCH 30.0 MCHC 33.6 RDW 13.0 Plt Count 135 MPV 10.0 Neut % (Auto) 70.0 Lymph % (Auto) 21.2 [place] % (Auto) 7.3 Eos % (Auto) 1.0 Baso % (Auto) 0.5 Neut # 7.0 Lymph # 2.1 [place] # 0.7 Eos # 0.1 Baso # 0.1 PT 11.5 H INR 1.11 H APTT 23.4 Sodium 139 Potassium 4.0 Chloride 103 Carbon Dioxide 26 Anion Gap 14 BUN 12 Creatinine 0.9 Est GFR ( Amer) > 60 Est GFR (Non-Af Amer) > 60 Random Glucose 121 H Calcium 8.2 L Total Bilirubin 1.5 H AST 167 H D ALT 433 H D Alkaline Phosphatase 138 H D Lactate Dehydrogenase 611 Total Protein 6.3 Albumin 3.3 L Globulin 3.1 Albumin/Globulin Ratio 1.1 Lipase 3758 H - Imaging and Cardiology MRI - abdomen Status: Report reviewed by me CT scan - abdomen Status: Report reviewed by me Assessment & Plan (1) Acute pancreatitis Assessment and Plan: Gallstone pancreatitis. Pancreatic and liver enzymes improving. No evidence of CBD stone and therefore ERCP not needed. Continue IV hydration and adequate analgesia. May be able to start liquids tomorrow if clinically continues to improve. Lap nikhil when pancreatitis has improved somewhat. Status: Acute
[2017-03-03] MEDS: Piperacillin/Tazobact 4.5 GM in Sodium Chloride 0.9% 100 ML IVPB SCH ×4 (03:51→22:59)
--- NOTE | 2017-03-03 07:34 | CP.PCM.PN ---
<Liliana Koch - Last Filed: 03/03/17 07:31> Subjective - Date & Time of Evaluation Date of Evaluation: 03/03/17 Time of Evaluation: 06:50 - Subjective Subjective: GENERAL SURGERY PROGRESS NOTE- Dr. Saeed 41 y/o Male seen at bedside concerning gastritis & pancreatitis. Pt remains NPO with no acute overnight breakthrough abdominal pain. Noted LUQ and LLQ pain. Denies vomiting since admission. He denies diarrhea, fever, chills. Objective - Vital Signs/Intake and Output Vital Signs (last 24 hours): Temp Pulse Resp BP Pulse Ox 99 F 89 18 135/64 93 L 03/03/17 00:00 03/03/17 00:00 03/03/17 00:00 03/03/17 00:00 03/02/17 22:00 Intake and Output: 03/03/17 03/03/17 06:59 18:59 Intake Total 1000 Balance 1000 - Medications Medications: Current Medications Acetaminophen (Tylenol 650 Mg Supp) 650 mg [place] Q6 PRN PRN Reason: Fever >100.4 F Last Admin: 03/02/17 15:37 Dose: 650 mg Enoxaparin Sodium (Lovenox) 40 mg SC DAILY [facility] PRN Reason: Protocol Sodium Chloride (Sodium Chloride 0.9%) 1,000 mls @ 200 mls/hr IV .Q5H [facility] Last Admin: 03/02/17 21:35 Dose: 200 mls/hr Piperacillin Sod/Tazobactam (Sod 4.5 gm/ Sodium Chloride) 100 mls @ 100 mls/hr IVPB Q6 [facility] Last Admin: 03/03/17 03:51 Dose: 100 mls/hr Morphine Sulfate (Morphine) 2 mg IVP Q4 PRN PRN Reason: Pain, moderate (4-7) Last Admin: 03/03/17 05:18 Dose: 2 mg Ondansetron HCl (Zofran Inj) 4 mg IVP Q4H PRN PRN Reason: Nausea/Vomiting Pantoprazole Sodium (Protonix Inj) 40 mg IVP DAILY [facility] Last Admin: 03/02/17 08:14 Dose: 40 mg - Labs Labs: 03/02/17 06:30 03/02/17 06:30 PT 11.5 SECONDS (9.6-11.2) H 03/02/17 06:30 INR 1.11 (0.92-1.08) H 03/02/17 06:30 APTT 23.4 SECONDS (23.3-32.5) 03/02/17 06:30 - Constitutional Appears: Non-toxic, No Acute Distress - Respiratory Exam Respiratory Exam: NORMAL BREATHING PATTERN. absent: Chest Wall Tenderness, Decreased Breath Sounds - GI/Abdominal Exam GI & Abdominal Exam: Firm (right upper half of abdomen ), Soft, Tenderness ( Right upper hemisphere), Normal Bowel Sounds. absent: Rigid - Neurological Exam Neurological Exam: Alert, Awake, Oriented x3 - Psychiatric Exam Psychiatric exam: Normal Affect, Normal Mood - Skin Skin Exam: Intact, Normal Color, Warm Assessment and Plan - Assessment and Plan (Free Text) Assessment: 41yo M with PMHx of gastritis who was found to have pancreatitis likely secondary to gallstones Plan: Pt seen and evaluated. Remain NPO Continue IV fluids GI consult appreciated, noted no plan for ERCP. Upon improvement of pancreatic and liver enzymes General Surgical intervention Laparoscopic Cholecystectomy planned for Monday03/06/17. will continue to follow. Discussed with Dr. Saeed <True Saeed - Last Filed: 03/03/17 10:37> Subjective - Subjective Subjective: Patient was seen and examined at the bedside. Agree with resident's note above Objective - Vital Signs/Intake and Output Vital Signs (last 24 hours): Temp Pulse Resp BP Pulse Ox 100.7 F H 96 H 20 120/78 98 03/03/17 08:06 03/03/17 08:06 03/03/17 08:06 03/03/17 08:06 03/03/17 08:06 Intake and Output: 03/03/17 03/03/17 06:59 18:59 Intake Total 1000 Balance 1000 - Medications Medications: Current Medications Acetaminophen (Tylenol 650 Mg Supp) 650 mg [place] Q6 PRN PRN Reason: Fever >100.4 F Last Admin: 03/03/17 08:34 Dose: 650 mg Enoxaparin Sodium (Lovenox) 40 mg SC DAILY [facility] PRN Reason: Protocol Last Admin: 03/03/17 09:30 Dose: 40 mg Sodium Chloride (Sodium Chloride 0.9%) 1,000 mls @ 200 mls/hr IV .Q5H [facility] Last Admin: 03/02/17 21:35 Dose: 200 mls/hr Piperacillin Sod/Tazobactam (Sod 4.5 gm/ Sodium Chloride) 100 mls @ 100 mls/hr IVPB Q6 [facility] Last Admin: 03/03/17 09:31 Dose: 100 mls/hr Morphine Sulfate (Morphine) 2 mg IVP Q4 PRN PRN Reason: Pain, moderate (4-7) Last Admin: 03/03/17 09:29 Dose: 2 mg Ondansetron HCl (Zofran Inj) 4 mg IVP Q4H PRN PRN Reason: Nausea/Vomiting Pantoprazole Sodium (Protonix Inj) 40 mg IVP DAILY [facility] Last Admin: 03/03/17 09:30 Dose: 40 mg - Labs Labs: 03/03/17 07:45 03/03/17 07:45 PT 11.5 SECONDS (9.6-11.2) H 03/02/17 06:30 INR 1.11 (0.92-1.08) H 03/02/17 06:30 APTT 23.4 SECONDS (23.3-32.5) 03/02/17 06:30
[2017-03-03 08:13] LABS: BASO # 0.1 K/uL (0.0-0.2); BASO % 0.7 % (0.0-2.0); EOS # 0.2 K/uL (0.0-0.7); EOS % 1.4 % (0.0-4.0); LYMPH # 2.2 K/uL (1.0-4.3); LYMPH % 20.2 % (20.0-40.0); MEAN CELL VOLUME 90.2 fl (80.0-94.0); MEAN CORPUSCULAR HEMOGLOBIN 30.1 pg (27.0-31.0); MEAN CORPUSCULAR HGB CONC 33.4 g/dL (33.0-37.0); MEAN PLATELET VOLUME 10.3 fl (7.2-11.7); MONO # 0.9 K/uL (0.0-0.8); MONO % 8.3 % (0.0-10.0); NEUT # 7.7 K/uL (1.8-7.0); NEUT % 69.4 % (50.0-75.0); NRBC % 0.1 % (0.0-0.0); WHITE BLOOD COUNT 11.1 K/uL (4.8-10.8)
[2017-03-03 08:24] LABS: ALKALINE PHOSPHATASE 115 U/L (38-126); ALT/SGPT 266 U/L (21-72); AST/SGOT 60 U/L (17-59); BILIRUBIN,TOTAL 1.5 mg/dl (0.2-1.3); BLOOD UREA NITROGEN 13 mg/dl (9-20); CALCIUM 8.2 mg/dL (8.4-10.2); CARBON DIOXIDE 25 mmol/L (22-30); CHLORIDE 101 mmol/L (98-107); CHOLESTEROL 141 mg/dL (0-199); GFR AFRICAN-AMERICAN > 60; GLUCOSE,RANDOM 113 mg/dL (75-110); LIPASE 535 U/L (23-300); POTASSIUM 3.9 MMOL/L (3.6-5.0); SODIUM 134 mmol/l (132-148); TOTAL PROTEIN 6.4 G/DL (6.3-8.2)
[2017-03-03] MEDS: Enoxaparin 40 mg Syringe SC SCH (09:30)
--- NOTE | 2017-03-03 09:50 | CP.PCM.PN ---
Subjective - Date & Time of Evaluation Date of Evaluation: 03/03/17 Time of Evaluation: 09:40 - Subjective Subjective: Febrile this am abd pain better no N/V still NPO no CP no SOB Discussed with pt plan for Lap Denita in am Objective - Vital Signs/Intake and Output Vital Signs (last 24 hours): Temp Pulse Resp BP Pulse Ox 100.7 F H 96 H 20 120/78 98 03/03/17 08:06 03/03/17 08:06 03/03/17 08:06 03/03/17 08:06 03/03/17 08:06 Intake and Output: 03/03/17 03/03/17 06:59 18:59 Intake Total 1000 Balance 1000 - Medications Medications: Current Medications Acetaminophen (Tylenol 650 Mg Supp) 650 mg [place] Q6 PRN PRN Reason: Fever >100.4 F Last Admin: 03/03/17 08:34 Dose: 650 mg Enoxaparin Sodium (Lovenox) 40 mg SC DAILY [facility] PRN Reason: Protocol Last Admin: 03/03/17 09:30 Dose: 40 mg Sodium Chloride (Sodium Chloride 0.9%) 1,000 mls @ 200 mls/hr IV .Q5H [facility] Last Admin: 03/02/17 21:35 Dose: 200 mls/hr Piperacillin Sod/Tazobactam (Sod 4.5 gm/ Sodium Chloride) 100 mls @ 100 mls/hr IVPB Q6 [facility] Last Admin: 03/03/17 09:31 Dose: 100 mls/hr Morphine Sulfate (Morphine) 2 mg IVP Q4 PRN PRN Reason: Pain, moderate (4-7) Last Admin: 03/03/17 09:29 Dose: 2 mg Ondansetron HCl (Zofran Inj) 4 mg IVP Q4H PRN PRN Reason: Nausea/Vomiting Pantoprazole Sodium (Protonix Inj) 40 mg IVP DAILY [facility] Last Admin: 03/03/17 09:30 Dose: 40 mg - Labs Labs: 03/03/17 07:45 03/03/17 07:45 PT 11.5 SECONDS (9.6-11.2) H 03/02/17 06:30 INR 1.11 (0.92-1.08) H 03/02/17 06:30 APTT 23.4 SECONDS (23.3-32.5) 03/02/17 06:30 - Constitutional Appears: No Acute Distress - Head Exam Head Exam: ATRAUMATIC, NORMAL INSPECTION, NORMOCEPHALIC - Eye Exam Eye Exam: EOMI, Normal appearance, PERRL Pupil Exam: NORMAL ACCOMODATION - ENT Exam ENT Exam: Mucous Membranes Dry, Normal External Ear Exam - Neck Exam Neck Exam: Full ROM. absent: Meningismus - Respiratory Exam Respiratory Exam: NORMAL BREATHING PATTERN. absent: Respiratory Distress - Cardiovascular Exam Cardiovascular Exam: REGULAR RHYTHM, +S1, +S2 - GI/Abdominal Exam GI & Abdominal Exam: Tenderness, Normal Bowel Sounds Additional comments: upper abdominal tenderness - Extremities Exam Extremities Exam: Full ROM, Normal Capillary Refill, Normal Inspection. absent : Calf Tenderness - Back Exam Back Exam: Full ROM, NORMAL INSPECTION. absent: CVA tenderness (L), CVA tenderness (R), paraspinal tenderness - Neurological Exam Neurological Exam: Alert, Awake, CN II-XII Intact, Normal Gait, Oriented x3 Neuro motor strength exam: Left Upper Extremity: 5, Right Upper Extremity: 5, Left Lower Extremity: 5, Right Lower Extremity: 5 - Psychiatric Exam Psychiatric exam: Normal Affect, Normal Mood - Skin Skin Exam: Dry, Normal Color, Warm Assessment and Plan (1) Acute pancreatitis Status: Acute (2) Cholelithiasis Status: Acute (3) Abnormal LFTs Status: Acute (4) DVT prophylaxis Status: Acute - Assessment and Plan (Free Text) Assessment: 41 y/o gent , no significant PMH, no hx of ETOH, came bec of abd pain and N/V. CT of abd :Findings consistent with acute pancreatitis. No peripancreatic fluid collection. Filling defect in the 2nd portion of the duodenum may represent an edematous ampulla but the possibility of a mass must also be considered. Recommend endoscopy when clinically feasible. . Fatty infiltration of the liver. No other significant abnormality. At present, pt's pain is improving, Lipase and LFTs trending down. No plan for ERCP. Plan for Lap Cholecystectomy on Monday. (1) Acute pancreatitis, likely Gallstone Pancreatitis Status: Acute CT showed acute Pancreatitis changes, Gallstones Lipase markedly elevated to 17K - trended to to 500s Keep NPO IVF hydration 200 ml /hr Pain mgt cont IV Zosyn- pt has fever GI consulted, discussed case with dr Bender - no ERCP Surgery consulted- plan for Lap Denita on Monday when pancreatitis is better MRCP: - Limited exam due to motion artifact. - Findings suspicious for acute pancreatitis. Recommend correlation with pancreatic enzyme values. - Minimally dilated common bile duct, 6.5 mm, cause not identified. Recommend correlation with LFTs for laboratory evidence of biliary obstruction. - Extensive gallstones. No evidence of cholecystitis. (2) Cholelithiasis Status: Acute as above (3) Abnormal LFTs Status: Acute ? Choledocholithiasis , may have passed stones monitor LFTs- trending down (4) DVT prophylaxis Status: Acute lovenox
[2017-03-03] MEDS: Sodium Chloride 0.9% 1,000 ML IV SCH ×5 (10:57→23:21)
--- NOTE | 2017-03-03 15:01 | CP.PCM.PN ---
Subjective - Date & Time of Evaluation Date of Evaluation: 03/03/17 Time of Evaluation: 14:55 - Subjective Subjective: Patient still with abdominal pain though controlled with analgesics and improved from admission Objective - Vital Signs/Intake and Output Vital Signs (last 24 hours): Temp Pulse Resp BP Pulse Ox 98.5 F 92 H 20 120/78 96 03/03/17 10:00 03/03/17 10:00 03/03/17 10:00 03/03/17 08:06 03/03/17 10:00 Intake and Output: 03/03/17 03/03/17 06:59 18:59 Intake Total 1999 Balance 1999 - Medications Medications: Current Medications Acetaminophen (Tylenol 650 Mg Supp) 650 mg [place] Q6 PRN PRN Reason: Fever >100.4 F Last Admin: 03/03/17 08:34 Dose: 650 mg Enoxaparin Sodium (Lovenox) 40 mg SC DAILY [facility] PRN Reason: Protocol Last Admin: 03/03/17 09:30 Dose: 40 mg Sodium Chloride (Sodium Chloride 0.9%) 1,000 mls @ 200 mls/hr IV .Q5H [facility] Last Admin: 03/03/17 10:57 Dose: 200 mls/hr Piperacillin Sod/Tazobactam (Sod 4.5 gm/ Sodium Chloride) 100 mls @ 100 mls/hr IVPB Q6 [facility] Last Admin: 03/03/17 09:31 Dose: 100 mls/hr Morphine Sulfate (Morphine) 2 mg IVP Q4 PRN PRN Reason: Pain, moderate (4-7) Last Admin: 03/03/17 14:13 Dose: 2 mg Ondansetron HCl (Zofran Inj) 4 mg IVP Q4H PRN PRN Reason: Nausea/Vomiting Pantoprazole Sodium (Protonix Inj) 40 mg IVP DAILY [facility] Last Admin: 03/03/17 09:30 Dose: 40 mg - Labs Labs: 03/03/17 07:45 03/03/17 07:45 PT 11.5 SECONDS (9.6-11.2) H 03/02/17 06:30 INR 1.11 (0.92-1.08) H 03/02/17 06:30 APTT 23.4 SECONDS (23.3-32.5) 03/02/17 06:30 - Head Exam Head Exam: ATRAUMATIC - Eye Exam Eye Exam: Normal appearance - ENT Exam ENT Exam: Mucous Membranes Moist - Neck Exam Neck Exam: Full ROM - Respiratory Exam Respiratory Exam: Clear to Ausculation Bilateral - Cardiovascular Exam Cardiovascular Exam: +S1, +S2 - GI/Abdominal Exam GI & Abdominal Exam: Soft, Tenderness, Normal Bowel Sounds Additional comments: midabdominal tenderness , no guarding Assessment and Plan (1) Acute pancreatitis Assessment & Plan: Had low grade temp yesterday and agree with initiation of antibiotics. Scheduled Monday for lap/nikhil. Maintain NPO today. Continue IV fluids Status: Acute
[2017-03-04] MEDS: Sodium Chloride 0.9% 1,000 ML IV SCH ×7 (01:37→22:18)
[2017-03-04] MEDS: Piperacillin/Tazobact 4.5 GM in Sodium Chloride 0.9% 100 ML IVPB SCH ×4 (03:38→22:57)
--- NOTE | 2017-03-04 07:30 | CP.PCM.PN ---
Subjective - Date & Time of Evaluation Date of Evaluation: 03/04/17 Time of Evaluation: 08:30 - Subjective Subjective: Patient was seen and evaluated bedside. Still complains of abdominal pain more on the LUQ but better.Still febrile with Tmax 100.7 Hemodynamically stable. Feeling hungry, passing flatus . Objective - Vital Signs/Intake and Output Vital Signs (last 24 hours): Temp Pulse Resp BP Pulse Ox 99.7 F H 77 19 128/82 97 03/03/17 20:39 03/03/17 20:39 03/03/17 20:39 03/03/17 20:39 03/03/17 20:39 - Medications Medications: Current Medications Acetaminophen (Tylenol 650 Mg Supp) 650 mg [place] Q6 PRN PRN Reason: Fever >100.4 F Last Admin: 03/03/17 08:34 Dose: 650 mg Enoxaparin Sodium (Lovenox) 40 mg SC DAILY [facility] PRN Reason: Protocol Last Admin: 03/03/17 09:30 Dose: 40 mg Sodium Chloride (Sodium Chloride 0.9%) 1,000 mls @ 200 mls/hr IV .Q5H [facility] Last Admin: 03/04/17 06:14 Dose: 200 mls/hr Piperacillin Sod/Tazobactam (Sod 4.5 gm/ Sodium Chloride) 100 mls @ 100 mls/hr IVPB Q6 [facility] Last Admin: 03/04/17 03:38 Dose: 100 mls/hr Morphine Sulfate (Morphine) 2 mg IVP Q4 PRN PRN Reason: Pain, moderate (4-7) Last Admin: 03/04/17 06:24 Dose: 2 mg Ondansetron HCl (Zofran Inj) 4 mg IVP Q4H PRN PRN Reason: Nausea/Vomiting Pantoprazole Sodium (Protonix Inj) 40 mg IVP DAILY [facility] Last Admin: 03/03/17 09:30 Dose: 40 mg - Labs Labs: 03/03/17 07:45 03/03/17 07:45 PT 11.5 SECONDS (9.6-11.2) H 03/02/17 06:30 INR 1.11 (0.92-1.08) H 03/02/17 06:30 APTT 23.4 SECONDS (23.3-32.5) 03/02/17 06:30 - Constitutional Appears: Well, Non-toxic, No Acute Distress - Head Exam Head Exam: ATRAUMATIC, NORMAL INSPECTION, NORMOCEPHALIC - Eye Exam Eye Exam: EOMI, Normal appearance, PERRL Pupil Exam: NORMAL ACCOMODATION - ENT Exam ENT Exam: Mucous Membranes Moist, Normal Exam - Neck Exam Neck Exam: Full ROM, Normal Inspection. absent: Lymphadenopathy - Respiratory Exam Respiratory Exam: Clear to Ausculation Bilateral, NORMAL BREATHING PATTERN. absent: Rales, Rhonchi, Wheezes - Cardiovascular Exam Cardiovascular Exam: REGULAR RHYTHM, RRR, +S1, +S2. absent: JVD - GI/Abdominal Exam GI & Abdominal Exam: Soft, Tenderness (LUQ), Normal Bowel Sounds. absent: Distended, Guarding, Rebound - Rectal Exam Rectal Exam: Deferred - Extremities Exam Extremities Exam: Full ROM, Normal Capillary Refill, Normal Inspection. absent : Calf Tenderness, Pedal Edema - Back Exam Back Exam: NORMAL INSPECTION - Neurological Exam Neurological Exam: Alert, Awake, CN II-XII Intact, Oriented x3 - Psychiatric Exam Psychiatric exam: Normal Affect, Normal Mood - Skin Skin Exam: Dry, Intact, Normal Color, Warm Assessment and Plan - Assessment and Plan (Free Text) Assessment: 41 y/o gent with no significant PMH, no hx of ETOH, came bec of abd pain and N/ V. CT of abd showed acute pancreatitis and filling defect in the 2nd portion of the duodenum may represent an edematous ampulla but the possibility of a mass must also be considered.Fatty infiltration of the liver. Patient admitted to med/surg with diagnosis of acute gallstone pancreatitis and cholelithiasis. GI and surgery were consulted . Started on IVF and pain management . At present pain is improving, lipase and LFTs trending down. No plan for ERCP. Plan for Lap Cholecystectomy on Monday. (1) Acute pancreatitis, likely Gallstone Pancreatitis improving CT abdomen showed acute Pancreatitis and gallstones MRCP showed on CBD stone Surgery and GI consulted Lipase was markedly elevated to 17K on admission and now normalized 269 No need for ERCP as per GI since lipase , LFT-s itrending down and clinically patient is improving Strat liquid diet today Continue IVF, pain management cont IV Zosyn since patient has fever Plan for lap cholecystectomy on Monday (2) Cholelithiasis Plan for lap cholecystectomy on Monday (3) Abnormal LFTs improving Most likely secondary to Choledocholithiasis , As per GI may have passed stones (4) DVT prophylaxis on lovenox
[2017-03-04 07:50] LABS: BASO % 0.4 % (0.0-2.0); EOS # 0.2 K/uL (0.0-0.7); EOS % 1.5 % (0.0-4.0); HEMATOCRIT 36.1 % (35.0-51.0); LYMPH # 1.7 K/uL (1.0-4.3); LYMPH % 16.2 % (20.0-40.0); MEAN CORPUSCULAR HEMOGLOBIN 30.9 pg (27.0-31.0); MEAN CORPUSCULAR HGB CONC 35.2 g/dL (33.0-37.0); MEAN PLATELET VOLUME 9.7 fl (7.2-11.7); MONO # 0.9 K/uL (0.0-0.8); MONO % 8.9 % (0.0-10.0); NEUT # 7.7 K/uL (1.8-7.0); NRBC % 0.1 % (0.0-0.0); RED CELL DISTRIBUTION WIDTH 12.4 % (11.5-14.5); WHITE BLOOD COUNT 10.6 K/uL (4.8-10.8)
[2017-03-04 08:01] LABS: MEAN CELL VOLUME 87.9 fl (80.0-94.0)
[2017-03-04 08:31] LABS: ALB/GLOB RATIO 0.9 (1.0-2.1); ALKALINE PHOSPHATASE 100 U/L (38-126); ALT/SGPT 181 U/L (21-72); AST/SGOT 37 U/L (17-59); BILIRUBIN,TOTAL 1.4 mg/dl (0.2-1.3); BLOOD UREA NITROGEN 12 mg/dl (9-20); CALCIUM 8.3 mg/dL (8.4-10.2); CARBON DIOXIDE 25 mmol/L (22-30); CHLORIDE 101 mmol/L (98-107); GFR AFRICAN-AMERICAN > 60; GLUCOSE,RANDOM 110 mg/dL (75-110); LIPASE 269 U/L (23-300); SODIUM 134 mmol/l (132-148); TOTAL PROTEIN 6.7 G/DL (6.3-8.2)
[2017-03-04] MEDS: Enoxaparin 40 mg Syringe SC SCH (09:18)
--- NOTE | 2017-03-04 11:49 | CP.PCM.PN ---
<Juan Alvarado - Last Filed: 03/04/17 11:47> Subjective - Date & Time of Evaluation Date of Evaluation: 03/04/17 Time of Evaluation: 09:45 - Subjective Subjective: General Surgery Pt S&E, NAEO. still with abd pain, but better than yesterday. Denies N/V. Says he is hungry. No other C/O. Objective - Vital Signs/Intake and Output Vital Signs (last 24 hours): Temp Pulse Resp BP Pulse Ox 99.7 F H 77 20 131/82 95 03/04/17 07:48 03/04/17 07:48 03/04/17 07:48 03/04/17 07:48 03/04/17 07:48 - Medications Medications: Current Medications Acetaminophen (Tylenol 650 Mg Supp) 650 mg [place] Q6 PRN PRN Reason: Fever >100.4 F Last Admin: 03/03/17 08:34 Dose: 650 mg Enoxaparin Sodium (Lovenox) 40 mg SC DAILY [facility] PRN Reason: Protocol Last Admin: 03/04/17 09:18 Dose: 40 mg Sodium Chloride (Sodium Chloride 0.9%) 1,000 mls @ 200 mls/hr IV .Q5H [facility] Last Admin: 03/04/17 06:14 Dose: 200 mls/hr Piperacillin Sod/Tazobactam (Sod 4.5 gm/ Sodium Chloride) 100 mls @ 100 mls/hr IVPB Q6 [facility] Last Admin: 03/04/17 09:18 Dose: 100 mls/hr Morphine Sulfate (Morphine) 2 mg IVP Q4 PRN PRN Reason: Pain, moderate (4-7) Last Admin: 03/04/17 06:24 Dose: 2 mg Ondansetron HCl (Zofran Inj) 4 mg IVP Q4H PRN PRN Reason: Nausea/Vomiting Pantoprazole Sodium (Protonix Inj) 40 mg IVP DAILY [facility] Last Admin: 03/04/17 09:19 Dose: 40 mg - Labs Labs: 03/04/17 05:30 03/04/17 05:30 PT 11.5 SECONDS (9.6-11.2) H 03/02/17 06:30 INR 1.11 (0.92-1.08) H 03/02/17 06:30 APTT 23.4 SECONDS (23.3-32.5) 03/02/17 06:30 - Constitutional Appears: Non-toxic, No Acute Distress - Head Exam Head Exam: ATRAUMATIC, NORMOCEPHALIC - Eye Exam Eye Exam: EOMI. absent: Scleral icterus - Respiratory Exam Respiratory Exam: NORMAL BREATHING PATTERN. absent: Respiratory Distress - GI/Abdominal Exam GI & Abdominal Exam: Guarding, Soft, Tenderness (in epigastrum and RUQ). absent : Distended, Firm, Rigid - Back Exam Back Exam: absent: CVA tenderness (L), CVA tenderness (R) - Neurological Exam Neurological Exam: Alert, Awake - Skin Skin Exam: Dry, Warm Assessment and Plan - Assessment and Plan (Free Text) Assessment: 41M with pancreatitis likely secondary to gallstones Plan: NPO Cont IVF Analgesia OR planned for Monday 11AM D/W Dr. Christophe Alvarado PGY3 <True Saeed - Last Filed: 03/04/17 14:12> Subjective - Date & Time of Evaluation Time of Evaluation: 13:10 - Subjective Subjective: Patient was seen and examined at the bedside. Agree with resident's note above Objective - Vital Signs/Intake and Output Vital Signs (last 24 hours): Temp Pulse Resp BP Pulse Ox 99.7 F H 77 20 131/82 95 03/04/17 07:48 03/04/17 07:48 03/04/17 07:48 03/04/17 07:48 03/04/17 07:48 - Medications Medications: Current Medications Acetaminophen (Tylenol 650 Mg Supp) 650 mg [place] Q6 PRN PRN Reason: Fever >100.4 F Last Admin: 03/03/17 08:34 Dose: 650 mg Enoxaparin Sodium (Lovenox) 40 mg SC DAILY [facility] PRN Reason: Protocol Last Admin: 03/04/17 09:18 Dose: 40 mg Sodium Chloride (Sodium Chloride 0.9%) 1,000 mls @ 200 mls/hr IV .Q5H [facility] Last Admin: 03/04/17 12:43 Dose: 200 mls/hr Piperacillin Sod/Tazobactam (Sod 4.5 gm/ Sodium Chloride) 100 mls @ 100 mls/hr IVPB Q6 [facility] Last Admin: 03/04/17 09:18 Dose: 100 mls/hr Morphine Sulfate (Morphine) 2 mg IVP Q4 PRN PRN Reason: Pain, moderate (4-7) Last Admin: 03/04/17 06:24 Dose: 2 mg Ondansetron HCl (Zofran Inj) 4 mg IVP Q4H PRN PRN Reason: Nausea/Vomiting Pantoprazole Sodium (Protonix Inj) 40 mg IVP DAILY [facility] Last Admin: 03/04/17 09:19 Dose: 40 mg - Labs Labs: 03/04/17 05:30 03/04/17 05:30 PT 11.5 SECONDS (9.6-11.2) H 03/02/17 06:30 INR 1.11 (0.92-1.08) H 03/02/17 06:30 APTT 23.4 SECONDS (23.3-32.5) 03/02/17 06:30 Assessment and Plan - Assessment and Plan (Free Text) Plan: - Clear liquid diet - Pain control - Continue IV fluids - Repeat labs in am - Plan for cholecystectomy on 03/06/17 - Will follow
[2017-03-05] MEDS: Sodium Chloride 0.9% 1,000 ML IV SCH ×6 (01:19→22:37)
[2017-03-05] MEDS: Piperacillin/Tazobact 4.5 GM in Sodium Chloride 0.9% 100 ML IVPB SCH ×4 (04:31→21:26)
--- NOTE | 2017-03-05 07:29 | CP.PCM.PN ---
Subjective - Date & Time of Evaluation Date of Evaluation: 03/05/17 Time of Evaluation: 10:30 - Subjective Subjective: Patient seen and evaluated bedside. Feeling better. Abdominal pain almost totally resolved. Denies any nausea, vomiting. Had BM. Hemodynamically stable,afebrile. No acute issues overnight Tolerating liquid diet Objective - Vital Signs/Intake and Output Vital Signs (last 24 hours): Temp Pulse Resp BP Pulse Ox 100.5 F H 86 18 130/83 95 03/04/17 20:50 03/04/17 20:50 03/04/17 20:50 03/04/17 20:50 03/04/17 20:50 - Medications Medications: Current Medications Acetaminophen (Tylenol 650 Mg Supp) 650 mg [place] Q6 PRN PRN Reason: Fever >100.4 F Last Admin: 03/03/17 08:34 Dose: 650 mg Enoxaparin Sodium (Lovenox) 40 mg SC DAILY [facility] PRN Reason: Protocol Last Admin: 03/04/17 09:18 Dose: 40 mg Sodium Chloride (Sodium Chloride 0.9%) 1,000 mls @ 200 mls/hr IV .Q5H [facility] Last Admin: 03/05/17 03:13 Dose: Not Given Piperacillin Sod/Tazobactam (Sod 4.5 gm/ Sodium Chloride) 100 mls @ 100 mls/hr IVPB Q6 [facility] Last Admin: 03/05/17 04:31 Dose: 100 mls/hr Morphine Sulfate (Morphine) 2 mg IVP Q4 PRN PRN Reason: Pain, moderate (4-7) Last Admin: 03/05/17 04:42 Dose: 2 mg Ondansetron HCl (Zofran Inj) 4 mg IVP Q4H PRN PRN Reason: Nausea/Vomiting Pantoprazole Sodium (Protonix Inj) 40 mg IVP DAILY [facility] Last Admin: 03/04/17 09:19 Dose: 40 mg - Labs Labs: 03/04/17 05:30 03/04/17 05:30 PT 11.5 SECONDS (9.6-11.2) H 03/02/17 06:30 INR 1.11 (0.92-1.08) H 03/02/17 06:30 APTT 23.4 SECONDS (23.3-32.5) 03/02/17 06:30 - Constitutional Appears: Non-toxic, No Acute Distress - Head Exam Head Exam: ATRAUMATIC, NORMAL INSPECTION, NORMOCEPHALIC - Eye Exam Eye Exam: EOMI, Normal appearance, PERRL Pupil Exam: NORMAL ACCOMODATION - ENT Exam ENT Exam: Mucous Membranes Moist, Normal Exam - Neck Exam Neck Exam: Full ROM, Normal Inspection - Respiratory Exam Respiratory Exam: Clear to Ausculation Bilateral. absent: Rales, Rhonchi, Wheezes - Cardiovascular Exam Cardiovascular Exam: REGULAR RHYTHM, RRR, +S1, +S2. absent: JVD - GI/Abdominal Exam GI & Abdominal Exam: Distended, Soft, Normal Bowel Sounds. absent: Guarding, Tenderness, Rebound - Rectal Exam Rectal Exam: Deferred - Extremities Exam Extremities Exam: Full ROM, Normal Capillary Refill, Normal Inspection. absent : Pedal Edema - Back Exam Back Exam: NORMAL INSPECTION - Neurological Exam Neurological Exam: Alert, Awake, CN II-XII Intact, Normal Gait, Oriented x3 - Psychiatric Exam Psychiatric exam: Normal Affect, Normal Mood - Skin Skin Exam: Dry, Intact, Normal Color, Warm Assessment and Plan - Assessment and Plan (Free Text) Assessment: 41 y/o gent with no significant PMH, no hx of ETOH, came bec of abd pain and N/ V. CT of abd showed acute pancreatitis and filling defect in the 2nd portion of the duodenum may represent an edematous ampulla but the possibility of a mass must also be considered.Fatty infiltration of the liver. Patient admitted to med/surg with diagnosis of acute gallstone pancreatitis and cholelithiasis. GI and surgery were consulted . Started on IVF and pain management . At present pain is improving, lipase and LFTs trending down. No plan for ERCP. Plan for Lap Cholecystectomy on Monday. (1) Acute pancreatitis, likely Gallstone Pancreatitis improving CT abdomen showed acute Pancreatitis and gallstones MRCP showed on CBD stone Surgery and GI consulted Lipase was markedly elevated to 17K on admission and now normalized 269 No need for ERCP as per GI since lipase , LFT-s trending down and clinically patient is improving Strart liquid diet and tolerating. will keep NPO past midnight for cholecystectomy in AM Continue IVF, pain management cont IV Zosyn since patient has fever Plan for lap cholecystectomy on Monday (2) Cholelithiasis Plan for lap cholecystectomy on Monday (3) Abnormal LFTs improving Most likely secondary to Choledocholithiasis As per GI may have passed stones (4) DVT prophylaxis on lovenox
[2017-03-05 08:22] LABS: HEMATOCRIT 35.6 % (35.0-51.0); MEAN CELL VOLUME 88.3 fl (80.0-94.0); MEAN CORPUSCULAR HEMOGLOBIN 30.5 pg (27.0-31.0); MEAN CORPUSCULAR HGB CONC 34.5 g/dL (33.0-37.0); RED CELL DISTRIBUTION WIDTH 12.4 % (11.5-14.5); WHITE BLOOD COUNT 9.4 K/uL (4.8-10.8)
[2017-03-05 08:26] LABS: ALB/GLOB RATIO 0.9 (1.0-2.1); ALKALINE PHOSPHATASE 88 U/L (38-126); ALT/SGPT 129 U/L (21-72); AST/SGOT 25 U/L (17-59); BILIRUBIN,TOTAL 0.9 mg/dl (0.2-1.3); BLOOD UREA NITROGEN 8 mg/dl (9-20); CALCIUM 8.3 mg/dL (8.4-10.2); CARBON DIOXIDE 27 mmol/L (22-30); CHLORIDE 103 mmol/L (98-107); GFR AFRICAN-AMERICAN > 60; GLUCOSE,RANDOM 114 mg/dL (75-110); LIPASE 195 U/L (23-300); POTASSIUM 4.2 MMOL/L (3.6-5.0); SODIUM 136 mmol/l (132-148); TOTAL PROTEIN 6.6 G/DL (6.3-8.2)
--- NOTE | 2017-03-05 08:43 | CP.PCM.PN ---
<Annie Braun - Last Filed: 03/05/17 08:41> Subjective - Date & Time of Evaluation Date of Evaluation: 03/05/17 Time of Evaluation: 08:41 - Subjective Subjective: General Surgery - Dr. Saeed pt S&E. LUCIANO. Pt states his pain is mostly resolved, still mild pain in the epigastric region. He is tolerating clear liquid diet. No N/V, F/C, SOB/Cp. Objective - Vital Signs/Intake and Output Vital Signs (last 24 hours): Temp Pulse Resp BP Pulse Ox 99.0 F 72 20 121/78 96 03/05/17 07:55 03/05/17 07:55 03/05/17 07:55 03/05/17 07:55 03/05/17 07:55 - Medications Medications: Current Medications Acetaminophen (Tylenol 650 Mg Supp) 650 mg SD Q6 PRN PRN Reason: Fever >100.4 F Last Admin: 03/03/17 08:34 Dose: 650 mg Enoxaparin Sodium (Lovenox) 40 mg SC DAILY [facility] PRN Reason: Protocol Last Admin: 03/04/17 09:18 Dose: 40 mg Sodium Chloride (Sodium Chloride 0.9%) 1,000 mls @ 200 mls/hr IV .Q5H [facility] Last Admin: 03/05/17 07:45 Dose: Not Given Piperacillin Sod/Tazobactam (Sod 4.5 gm/ Sodium Chloride) 100 mls @ 100 mls/hr IVPB Q6 [facility] Last Admin: 03/05/17 04:31 Dose: 100 mls/hr Morphine Sulfate (Morphine) 2 mg IVP Q4 PRN PRN Reason: Pain, moderate (4-7) Last Admin: 03/05/17 04:42 Dose: 2 mg Ondansetron HCl (Zofran Inj) 4 mg IVP Q4H PRN PRN Reason: Nausea/Vomiting Pantoprazole Sodium (Protonix Inj) 40 mg IVP DAILY [facility] Last Admin: 03/04/17 09:19 Dose: 40 mg - Labs Labs: 03/05/17 06:30 03/05/17 06:00 PT 11.5 SECONDS (9.6-11.2) H 03/02/17 06:30 INR 1.11 (0.92-1.08) H 03/02/17 06:30 APTT 23.4 SECONDS (23.3-32.5) 03/02/17 06:30 - Constitutional Appears: No Acute Distress - Head Exam Head Exam: ATRAUMATIC, NORMAL INSPECTION, NORMOCEPHALIC - Eye Exam Eye Exam: Normal appearance - ENT Exam ENT Exam: Mucous Membranes Moist - Respiratory Exam Respiratory Exam: NORMAL BREATHING PATTERN. absent: Respiratory Distress - GI/Abdominal Exam GI & Abdominal Exam: Soft. absent: Distended, Guarding, Rigid, Tenderness, Rebound - Neurological Exam Neurological Exam: Alert, Oriented x3 - Psychiatric Exam Psychiatric exam: Normal Affect, Normal Mood - Skin Skin Exam: Dry, Intact Assessment and Plan - Assessment and Plan (Free Text) Assessment: 41M with gallstone pancreatitis Plan: Clear liquid diet today, NPO @Midnight Continue IVF, Pain control OR Monday 11AM for Rufina Braun PGY2 <True Saeed - Last Filed: 03/05/17 11:45> Subjective - Date & Time of Evaluation Time of Evaluation: 11:40 - Subjective Subjective: Patient was seen and examined at the bedside. Agree with resident's note above Objective - Vital Signs/Intake and Output Vital Signs (last 24 hours): Temp Pulse Resp BP Pulse Ox 99.0 F 72 20 121/78 96 03/05/17 07:55 03/05/17 07:55 03/05/17 07:55 03/05/17 07:55 03/05/17 07:55 - Medications Medications: Current Medications Acetaminophen (Tylenol 650 Mg Supp) 650 mg SD Q6 PRN PRN Reason: Fever >100.4 F Last Admin: 03/03/17 08:34 Dose: 650 mg Enoxaparin Sodium (Lovenox) 40 mg SC DAILY [facility] PRN Reason: Protocol Last Admin: 03/05/17 09:00 Dose: 40 mg Sodium Chloride (Sodium Chloride 0.9%) 1,000 mls @ 200 mls/hr IV .Q5H [facility] Last Admin: 03/05/17 09:00 Dose: 200 mls/hr Piperacillin Sod/Tazobactam (Sod 4.5 gm/ Sodium Chloride) 100 mls @ 100 mls/hr IVPB Q6 [facility] Last Admin: 03/05/17 08:59 Dose: 100 mls/hr Morphine Sulfate (Morphine) 2 mg IVP Q4 PRN PRN Reason: Pain, moderate (4-7) Last Admin: 03/05/17 04:42 Dose: 2 mg Ondansetron HCl (Zofran Inj) 4 mg IVP Q4H PRN PRN Reason: Nausea/Vomiting Pantoprazole Sodium (Protonix Inj) 40 mg IVP DAILY [facility] Last Admin: 03/05/17 09:00 Dose: 40 mg - Labs Labs: 03/05/17 06:30 03/05/17 06:00 PT 11.5 SECONDS (9.6-11.2) H 03/02/17 06:30 INR 1.11 (0.92-1.08) H 03/02/17 06:30 APTT 23.4 SECONDS (23.3-32.5) 03/02/17 06:30 Assessment and Plan - Assessment and Plan (Free Text) Plan: - Continue clear liquid diet - IV fluids - pain control - Zofran prn - NPO after midnight - To OR tomorrow for cholecystectomy
[2017-03-05] MEDS: Enoxaparin 40 mg Syringe SC SCH (09:00)
[2017-03-06] MEDS: Sodium Chloride 0.9% 1,000 ML IV SCH ×5 (04:15→23:15)
[2017-03-06] MEDS: Piperacillin/Tazobact 4.5 GM in Sodium Chloride 0.9% 100 ML IVPB SCH ×4 (04:15→21:01)
[2017-03-06 07:23] LABS: HEMATOCRIT 37.6 % (35.0-51.0); MEAN CELL VOLUME 88.8 fl (80.0-94.0); MEAN CORPUSCULAR HEMOGLOBIN 30.5 pg (27.0-31.0); MEAN CORPUSCULAR HGB CONC 34.4 g/dL (33.0-37.0); RED CELL DISTRIBUTION WIDTH 12.6 % (11.5-14.5); WHITE BLOOD COUNT 9.8 K/uL (4.8-10.8)
[2017-03-06] MEDS: Enoxaparin 40 mg Syringe SC SCH (09:08)
--- NOTE | 2017-03-06 09:29 | CP.PCM.PN ---
Subjective - Date & Time of Evaluation Date of Evaluation: 03/06/17 Time of Evaluation: 09:30 - Subjective Subjective: Patient was seen and examined bedside. Feeling better.No acute issues overnight. Still febrile on and off with Tmax 101 last 24 hours, WBC 9.8. Minimal LUQ abdominal pain. BP stable Denies any nausea or vomiting. Had BM At presemnt NPO for cholecystectomy. Objective - Vital Signs/Intake and Output Vital Signs (last 24 hours): Temp Pulse Resp BP Pulse Ox 99.7 F H 76 18 124/84 96 03/06/17 08:27 03/06/17 08:27 03/06/17 08:27 03/06/17 08:27 03/06/17 08:27 - Medications Medications: Current Medications Acetaminophen (Tylenol 650 Mg Supp) 650 mg VT Q6 PRN PRN Reason: Fever >100.4 F Last Admin: 03/03/17 08:34 Dose: 650 mg Acetaminophen (Tylenol 325mg Tab) 650 mg PO Q6 PRN PRN Reason: Fever >100.4 F Last Admin: 03/05/17 18:28 Dose: 650 mg Enoxaparin Sodium (Lovenox) 40 mg SC DAILY [facility] PRN Reason: Protocol Last Admin: 03/06/17 09:08 Dose: Not Given Sodium Chloride (Sodium Chloride 0.9%) 1,000 mls @ 200 mls/hr IV .Q5H [facility] Last Admin: 03/06/17 04:15 Dose: 200 mls/hr Piperacillin Sod/Tazobactam (Sod 4.5 gm/ Sodium Chloride) 100 mls @ 100 mls/hr IVPB Q6 [facility] Last Admin: 03/06/17 04:15 Dose: 100 mls/hr Morphine Sulfate (Morphine) 2 mg IVP Q4 PRN PRN Reason: Pain, moderate (4-7) Last Admin: 03/05/17 22:39 Dose: 2 mg Ondansetron HCl (Zofran Inj) 4 mg IVP Q4H PRN PRN Reason: Nausea/Vomiting Pantoprazole Sodium (Protonix Inj) 40 mg IVP DAILY [facility] Last Admin: 03/05/17 09:00 Dose: 40 mg - Labs Labs: 03/06/17 05:55 03/05/17 06:00 PT 11.5 SECONDS (9.6-11.2) H 03/02/17 06:30 INR 1.11 (0.92-1.08) H 03/02/17 06:30 APTT 23.4 SECONDS (23.3-32.5) 03/02/17 06:30 - Constitutional Appears: Well, Non-toxic, No Acute Distress - Head Exam Head Exam: ATRAUMATIC, NORMAL INSPECTION, NORMOCEPHALIC - Eye Exam Eye Exam: EOMI, Normal appearance, PERRL Pupil Exam: NORMAL ACCOMODATION - ENT Exam ENT Exam: Mucous Membranes Moist, Normal Exam - Neck Exam Neck Exam: Full ROM, Normal Inspection - Respiratory Exam Respiratory Exam: Clear to Ausculation Bilateral, NORMAL BREATHING PATTERN. absent: Rales, Rhonchi, Wheezes - Cardiovascular Exam Cardiovascular Exam: REGULAR RHYTHM, RRR, +S1, +S2. absent: JVD - GI/Abdominal Exam GI & Abdominal Exam: Soft, Tenderness (with deep palpation to LUQ), Normal Bowel Sounds. absent: Distended, Guarding, Rebound - Rectal Exam Rectal Exam: Deferred - Extremities Exam Extremities Exam: Full ROM, Normal Capillary Refill, Normal Inspection. absent : Calf Tenderness, Pedal Edema - Back Exam Back Exam: NORMAL INSPECTION - Neurological Exam Neurological Exam: Alert, Awake, CN II-XII Intact, Normal Gait, Oriented x3 - Psychiatric Exam Psychiatric exam: Normal Affect, Normal Mood - Skin Skin Exam: Dry, Intact, Normal Color, Warm Assessment and Plan - Assessment and Plan (Free Text) Assessment: 41 y/o gent with no significant PMH, no hx of ETOH, came because of abdominal pain and N/V. CT of abd showed acute pancreatitis and filling defect in the 2nd portion of the duodenum that may represent an edematous ampulla but the possibility of a mass must also be considered.Fatty infiltration of the liver. Patient admitted to med/surg with diagnosis of acute gallstone pancreatitis and cholelithiasis. GI and surgery were consulted . Started on IVF and pain management . MRCP showed no CBD stone . At present pain has improved, lipase and LFTs trended down. Underwent Lap Cholecystectomy today . (1) Acute pancreatitis, likely Gallstone Pancreatitis improving CT abdomen showed acute Pancreatitis and gallstones MRCP showed on CBD stone Surgery and GI consulted Lipase was markedly elevated to 17K on admission and now normalized 269 No need for ERCP as per GI since lipase , LFT-s trending down and clinically patient improved underwent laparascopic cholecystectomy today Continue IVF, pain management cont IV Zosyn since patient has fever resume liquid diet post cholecystectomy (2) Cholelithiasis s/p lap cholecystectomy today Resume liquid diet and pain management Promote ambulation (3) Abnormal LFTs improving Most likely secondary to Choledocholithiasis As per GI may have passed stones (4) DVT prophylaxis Lovenox on hold for lap cholecystectomy
[2017-03-06 10:03] LABS: CHLORIDE 103 mmol/L (98-107)
[2017-03-06 10:04] LABS: POTASSIUM 3.8 MMOL/L (3.6-5.0); SODIUM 137 mmol/l (132-148)
[2017-03-06 10:06] LABS: ALKALINE PHOSPHATASE 97 U/L (38-126); ALT/SGPT 110 U/L (21-72); AST/SGOT 27 U/L (17-59); BILIRUBIN,TOTAL 0.9 mg/dl (0.2-1.3); CARBON DIOXIDE 24 mmol/L (22-30); GFR AFRICAN-AMERICAN > 60; GLUCOSE,RANDOM 120 mg/dL (75-110); TOTAL PROTEIN 6.9 G/DL (6.3-8.2)
[2017-03-06 10:07] LABS: CALCIUM 8.6 mg/dL (8.4-10.2); LIPASE 223 U/L (23-300)
[2017-03-06 10:20] LABS: BLOOD UREA NITROGEN 7 mg/dl (9-20)
[2017-03-06] MEDS ORDERED: Rocuronium 10 mg/ml (5 ml) ONE ×2 (10:34→11:56)
[2017-03-06] MEDS ORDERED: Midazolam 2 MG/2 ML VIAL ONE (10:34)
[2017-03-06] MEDS ORDERED: Propofol 10 mg/ml Inj (20 ML) ONE ×2 (10:34→12:32)
[2017-03-06] MEDS ORDERED: Phenylephrine 10 mg/ml Inj ONE (10:34)
[2017-03-06] MEDS ORDERED: Lactated Ringer's 1,000 ML IV ONE ×2 (10:45→12:45)
[2017-03-06] MEDS ORDERED: Bupivacaine 0.5% Inj(30mL) ONE (10:50)
[2017-03-06] MEDS ORDERED: Lidocaine 1% Inj (20ml) ONE (10:50)
[2017-03-06] MEDS ORDERED: Neostigmine Methylsulfate 2 MG/2 ML ML IV ONE (11:41)
[2017-03-06] MEDS ORDERED: Neostigmine Methylsulfate 3mg/3ml Syringe IV ONE (11:41)
[2017-03-06] MEDS ORDERED: Esmolol 100 mg/10ml Inj IV ONE (12:34)
[2017-03-06] MEDS ORDERED: Bupivacaine 0.5% Inj(30mL) IJ ONE (12:35)
[2017-03-06] MEDS ORDERED: PRO AIR HFA 8.5GM INHALER(FOR OR USE ONLY) IH ONE (12:50)
--- NOTE | 2017-03-06 13:01 | PCM.SURG1 ---
Surgeon's Initial Post Op Note - Surgeon's Notes Surgeon: Christophe [employer] Sales Advisor: Judson BLAKE, PGY3, Wagner PGY1 Type of Anesthesia: General Endo Pre-Operative Diagnosis: Gallstone pancreatitis, cholelithiasis Operative Findings: cholelithiasis, adhesions, inflamed gallbladder Post-Operative Diagnosis: Gallstone pancreatitis, cholelithiasis Operation Performed: Laparoscopic cholecystectomy Specimen/Specimens Removed: Gallbladder Estimated Blood Loss: EBL {In ML}: 40 Blood Products Given: N/A Drains Used: No Drains Post-Op Condition: Good Date of Surgery/Procedure: 03/06/17 Time of Surgery/Procedure: 11:10
[2017-03-06] MEDS ORDERED: HYDROmorphone 0.5 mg/0.5 ml ISec IVP PRN (13:06)
[2017-03-07] MEDS: Piperacillin/Tazobact 4.5 GM in Sodium Chloride 0.9% 100 ML IVPB SCH ×3 (03:53→16:00)
[2017-03-07] MEDS: Sodium Chloride 0.9% 1,000 ML IV SCH ×3 (04:15→19:25)
--- NOTE | 2017-03-07 07:33 | CP.PCM.PN ---
<Juan Alvarado - Last Filed: 03/07/17 07:30> Subjective - Date & Time of Evaluation Date of Evaluation: 03/07/17 Time of Evaluation: 06:50 - Subjective Subjective: General Surgery Pt S&E, Febrile to 102.7 overnight. C/O RUQ pain and pain at incisions. Also with R shoulder pain. Tolerating liquids. Using IS. Objective - Vital Signs/Intake and Output Vital Signs (last 24 hours): Temp Pulse Resp BP Pulse Ox 99.1 F 99 H 18 127/79 95 03/07/17 05:45 03/07/17 05:45 03/07/17 05:45 03/07/17 05:45 03/07/17 05:45 - Medications Medications: Current Medications Acetaminophen (Tylenol 650 Mg Supp) 650 mg TN Q6 PRN PRN Reason: Fever >100.4 F Last Admin: 03/03/17 08:34 Dose: 650 mg Acetaminophen (Tylenol 325mg Tab) 650 mg PO Q6 PRN PRN Reason: Fever >100.4 F Last Admin: 03/06/17 22:23 Dose: 650 mg Enoxaparin Sodium (Lovenox) 40 mg SC DAILY [facility] PRN Reason: Protocol Last Admin: 03/06/17 09:08 Dose: Not Given Sodium Chloride (Sodium Chloride 0.9%) 1,000 mls @ 200 mls/hr IV .Q5H [facility] Last Admin: 03/07/17 04:15 Dose: Not Given Piperacillin Sod/Tazobactam (Sod 4.5 gm/ Sodium Chloride) 100 mls @ 100 mls/hr IVPB Q6 [facility] Last Admin: 03/07/17 03:53 Dose: 100 mls/hr Morphine Sulfate (Morphine) 2 mg IVP Q4 PRN PRN Reason: Pain, moderate (4-7) Last Admin: 03/07/17 00:58 Dose: 2 mg Ondansetron HCl (Zofran Inj) 4 mg IVP Q4H PRN PRN Reason: Nausea/Vomiting Pantoprazole Sodium (Protonix Inj) 40 mg IVP DAILY [facility] Last Admin: 03/06/17 09:39 Dose: 40 mg - Labs Labs: 03/06/17 05:55 03/06/17 05:55 PT 11.5 SECONDS (9.6-11.2) H 03/02/17 06:30 INR 1.11 (0.92-1.08) H 03/02/17 06:30 APTT 23.4 SECONDS (23.3-32.5) 03/02/17 06:30 - Constitutional Appears: Non-toxic, No Acute Distress - Head Exam Head Exam: ATRAUMATIC, NORMOCEPHALIC - Respiratory Exam Respiratory Exam: NORMAL BREATHING PATTERN. absent: Respiratory Distress - GI/Abdominal Exam GI & Abdominal Exam: Distended (mild), Guarding, Soft, Tenderness (RUQ and around incisions). absent: Firm, Rigid Additional comments: incisions C/D/I - Neurological Exam Neurological Exam: Alert, Awake - Skin Skin Exam: Dry, Warm Assessment and Plan - Assessment and Plan (Free Text) Assessment: 41M s/p lap nikhil POD #1 Plan: ADAT Monitor for fevers F/U labs Analgesia Cont abx Encourage Ambulation and IS use Will D/W Dr. Christophe Alvarado PGY3 <True Saeed - Last Filed: 03/07/17 18:57> Subjective - Date & Time of Evaluation Time of Evaluation: 18:45 - Subjective Subjective: Patient was seen and examined at the bedside. Agree with resident's note above. Objective - Vital Signs/Intake and Output Vital Signs (last 24 hours): Temp Pulse Resp BP Pulse Ox 100.2 F H 103 H 18 126/80 93 L 03/07/17 17:28 03/07/17 16:18 03/07/17 16:18 03/07/17 16:18 03/07/17 16:18 - Medications Medications: Current Medications Acetaminophen (Tylenol 650 Mg Supp) 650 mg TN Q6 PRN PRN Reason: Fever >100.4 F Last Admin: 03/03/17 08:34 Dose: 650 mg Acetaminophen (Tylenol 325mg Tab) 650 mg PO Q6 PRN PRN Reason: Fever >100.4 F Last Admin: 03/07/17 16:28 Dose: 650 mg Enoxaparin Sodium (Lovenox) 40 mg SC DAILY [facility] PRN Reason: Protocol Last Admin: 03/07/17 10:17 Dose: 40 mg Sodium Chloride (Sodium Chloride 0.9%) 1,000 mls @ 200 mls/hr IV .Q5H [facility] Last Admin: 03/07/17 09:15 Dose: Not Given Meropenem 1 gm/ Sodium (Chloride) 100 mls @ 100 mls/hr IVPB Q8 [facility] Morphine Sulfate (Morphine) 2 mg IVP Q4 PRN PRN Reason: Pain, moderate (4-7) Last Admin: 03/07/17 14:14 Dose: 2 mg Ondansetron HCl (Zofran Inj) 4 mg IVP Q4H PRN PRN Reason: Nausea/Vomiting Pantoprazole Sodium (Protonix Ec Tab) 40 mg PO DAILY [facility] - Labs Labs: 03/07/17 07:20 03/07/17 07:20 PT 11.5 SECONDS (9.6-11.2) H 03/02/17 06:30 INR 1.11 (0.92-1.08) H 03/02/17 06:30 APTT 23.4 SECONDS (23.3-32.5) 03/02/17 06:30 Assessment and Plan - Assessment and Plan (Free Text) Plan: - Start regular diet - Pain control - Chest X-ray - Insentive spirometry - Out of bed and ambulate - Repeat labs in am - Will follow
[2017-03-07 08:01] LABS: HEMATOCRIT 36.6 % (35.0-51.0); MEAN CORPUSCULAR HEMOGLOBIN 30.2 pg (27.0-31.0); MEAN CORPUSCULAR HGB CONC 34.3 g/dL (33.0-37.0); RED CELL DISTRIBUTION WIDTH 12.5 % (11.5-14.5); WHITE BLOOD COUNT 9.8 K/uL (4.8-10.8)
[2017-03-07 08:15] LABS: ALB/GLOB RATIO 0.9 (1.0-2.1); ALKALINE PHOSPHATASE 87 U/L (38-126); ALT/SGPT 109 U/L (21-72); AST/SGOT 57 U/L (17-59); BILIRUBIN,TOTAL 1.3 mg/dl (0.2-1.3); BLOOD UREA NITROGEN 7 mg/dl (9-20); CALCIUM 8.7 mg/dL (8.4-10.2); CARBON DIOXIDE 27 mmol/L (22-30); CHLORIDE 100 mmol/L (98-107); GFR AFRICAN-AMERICAN > 60; GLUCOSE,RANDOM 120 mg/dL (75-110); POTASSIUM 3.6 MMOL/L (3.6-5.0); SODIUM 135 mmol/l (132-148); TOTAL PROTEIN 6.9 G/DL (6.3-8.2)
[2017-03-07] MEDS: Enoxaparin 40 mg Syringe SC SCH (10:17)
--- NOTE | 2017-03-07 11:03 | CP.PCM.PN ---
Subjective - Date & Time of Evaluation Date of Evaluation: 03/07/17 Time of Evaluation: 11:00 - Subjective Subjective: Pt has persistent fevr his pain is now controlled Lipase normalized and LFTs improved no cough no dysuria abd pain controlled no N/V + flatus no BM Objective - Vital Signs/Intake and Output Vital Signs (last 24 hours): Temp Pulse Resp BP Pulse Ox 98.9 F 82 20 116/77 95 03/07/17 08:25 03/07/17 08:25 03/07/17 08:25 03/07/17 08:25 03/07/17 08:25 - Medications Medications: Current Medications Acetaminophen (Tylenol 650 Mg Supp) 650 mg [place] Q6 PRN PRN Reason: Fever >100.4 F Last Admin: 03/03/17 08:34 Dose: 650 mg Acetaminophen (Tylenol 325mg Tab) 650 mg PO Q6 PRN PRN Reason: Fever >100.4 F Last Admin: 03/06/17 22:23 Dose: 650 mg Enoxaparin Sodium (Lovenox) 40 mg SC DAILY [facility] PRN Reason: Protocol Last Admin: 03/07/17 10:17 Dose: 40 mg Sodium Chloride (Sodium Chloride 0.9%) 1,000 mls @ 200 mls/hr IV .Q5H [facility] Last Admin: 03/07/17 04:15 Dose: Not Given Piperacillin Sod/Tazobactam (Sod 4.5 gm/ Sodium Chloride) 100 mls @ 100 mls/hr IVPB Q6 [facility] Last Admin: 03/07/17 10:18 Dose: 100 mls/hr Morphine Sulfate (Morphine) 2 mg IVP Q4 PRN PRN Reason: Pain, moderate (4-7) Last Admin: 03/07/17 10:35 Dose: 2 mg Ondansetron HCl (Zofran Inj) 4 mg IVP Q4H PRN PRN Reason: Nausea/Vomiting Pantoprazole Sodium (Protonix Inj) 40 mg IVP DAILY [facility] Last Admin: 03/07/17 10:18 Dose: 40 mg - Labs Labs: 03/07/17 07:20 03/07/17 07:20 PT 11.5 SECONDS (9.6-11.2) H 03/02/17 06:30 INR 1.11 (0.92-1.08) H 03/02/17 06:30 APTT 23.4 SECONDS (23.3-32.5) 03/02/17 06:30 - Constitutional Appears: No Acute Distress - Head Exam Head Exam: ATRAUMATIC, NORMAL INSPECTION, NORMOCEPHALIC - Eye Exam Eye Exam: EOMI, Normal appearance, PERRL Pupil Exam: NORMAL ACCOMODATION - ENT Exam ENT Exam: Mucous Membranes Moist, Normal External Ear Exam - Neck Exam Neck Exam: Full ROM. absent: Meningismus - Respiratory Exam Respiratory Exam: NORMAL BREATHING PATTERN. absent: Respiratory Distress - Cardiovascular Exam Cardiovascular Exam: REGULAR RHYTHM, +S1, +S2 - GI/Abdominal Exam GI & Abdominal Exam: Distended, Soft, Tenderness, Hypoactive Bowel Sounds - Extremities Exam Extremities Exam: Full ROM, Normal Capillary Refill. absent: Calf Tenderness, Pedal Edema - Back Exam Back Exam: Full ROM, NORMAL INSPECTION. absent: CVA tenderness (L), CVA tenderness (R), paraspinal tenderness, vertebral tenderness - Neurological Exam Neurological Exam: Alert, Awake, CN II-XII Intact, Normal Gait, Oriented x3 Neuro motor strength exam: Left Upper Extremity: 5, Right Upper Extremity: 5, Left Lower Extremity: 5, Right Lower Extremity: 5 - Psychiatric Exam Psychiatric exam: Normal Affect, Normal Mood - Skin Skin Exam: Dry, Normal Color, Warm Assessment and Plan (1) Acute pancreatitis Status: Acute (2) Cholelithiasis Status: Acute (3) Abnormal LFTs Status: Acute (4) DVT prophylaxis Status: Acute - Assessment and Plan (Free Text) Assessment: 41 y/o gent with no significant PMH, no hx of ETOH, came because of abdominal pain and N/V. CT of abd showed acute pancreatitis and filling defect in the 2nd portion of the duodenum that may represent an edematous ampulla but the possibility of a mass must also be considered.Fatty infiltration of the liver. Patient admitted to med/surg with diagnosis of acute gallstone pancreatitis and cholelithiasis. GI and surgery were consulted . Started on IVF and pain management . MRCP showed no CBD stone . At present pain has improved, lipase and LFTs trended down. Underwent Lap Cholecystectomy 03/06. Pt has persistent fever depsite IV Zosyn , ID consulted. (1) Acute pancreatitis, likely Gallstone Pancreatitis, improved improving CT abdomen showed acute Pancreatitis and gallstones MRCP showed no CBD stone Surgery and GI consulted Lipase was markedly elevated to 17K on admission and now normalized No need for ERCP as per GI since lipase , LFT-s trending down and clinically patient improved underwent laparascopic cholecystectomy 03/06 Continue IVF, pain management On Liquid diet Persistent fever despite IV Zosyn - ID consulted - discussed with Dr russell - rec change abx to IV Meropenem (2) Cholelithiasis s/p Lap Cholecystectomy s/p lap cholecystectomy liquid diet and pain management Promote ambulation abx change to IV Meropenem Pt has persistent fever - will rpt Blood, c/s, UA, CXR (3) Abnormal LFTs improving Most likely secondary to Choledocholithiasis As per GI may have passed stones (4) DVT prophylaxis Lovenox
--- NOTE | 2017-03-07 17:17 | RAD ---
HISTORY: fever COMPARISON: Comparison made with CT scan abdomen and pelvis 03/01/2017 which imaged both lung bases. Comparison also made with chest radiograph performed as part obstructive series dated 05/24/2012. TECHNIQUE: Chest PA and lateral FINDINGS: LUNGS: Bibasilar atelectasis and or scarring changes. There may be small bilateral effusions as well. PLEURA: No significant pleural effusion identified. No pneumothorax apparent. CARDIOVASCULAR: Cardiomegaly. OSSEOUS STRUCTURES: Mild multilevel degenerative spondylosis of the thoracic spine VISUALIZED UPPER ABDOMEN: Metallic clips right upper quadrant of the abdomen consistent with prior cholecystectomy OTHER FINDINGS: None. IMPRESSION: Bibasilar atelectasis and or scarring changes. There may be small bilateral effusions as well.
[2017-03-07] MEDS: Meropenem 1 GM in Sodium Chloride 0.9% 100 ML IVPB SCH (19:35)
--- NOTE | 2017-03-07 20:36 | OP ---
PROCEDURE DATE: 03/07/2017 PREOPERATIVE DIAGNOSIS: Gallstone pancreatitis. POSTOPERATIVE DIAGNOSIS: Gallstone pancreatitis. PROCEDURE: Laparoscopic cholecystectomy. SURGEON: True Saeed MD JOB PRINTER: Judson. ANESTHESIA: General endotracheal intubation. INTRAVENOUS FLUIDS: Crystalloids. ESTIMATED BLOOD LOSS: 50 mL. INTRAOPERATIVE FINDINGS: Cholelithiasis. IV FLUIDS: Crystalloids. SPECIMEN: Gallbladder with stones. BRIEF HISTORY: The patient is a very pleasant 41-year-old gentleman who presented to the hospital complaining of epigastric abdominal pain and upon further investigation was found to have pancreatitis as well as gallstones. The patient underwent MRCP that did not reveal any filling defects in the common bile duct and the patient's liver enzymes as well as amylase and lipase have improved and patient was taken to the operating room for above stated procedure. PROCEDURE: The patient was brought into the operating room and placed supine on the operating room table. Bilateral Flowtron boots were applied to patient' s lower extremities. After successful induction of anesthesia and successful endotracheal intubation by the anesthesia team, the patient's abdomen was prepped with ChloraPrep stick and draped in the standard surgical fashion. Prior to the beginning of the procedure, timeout was called in the room and everyone in the room were in agreement. Using Veress needle, patient's abdomen was entered at the umbilicus and pneumoperitoneum was achieved with good opening pressures. Once this was accomplished, using an 11 blade scalpel knife , approximately 1 cm incision was made in a longitudinal fashion in the umbilicus and subsequent to that, an 11 mm trocar was introduced into the patient's abdomen. At that point in time, a 5 mm 0-degree scope was introduced into the patient's abdomen and abdomen was inspected. Then, attention was turned to the subxiphoid area. Using 11 blade scalpel knife, a 5 mm incision was made in a transverse fashion and subsequent to that, another 5 mm trocar was introduced into the patient's abdomen. At that point in time, attention was turned to the right side of the patient's abdomen. Using 11 blade scalpel knife, two 5 mm incisions were made in transverse fashion and subsequent to that , two 5 mm trocars were introduced into the patient's abdomen. At that point in time, gallbladder was grasped at the fundus and infundibulum and using [place] dissector, the cystic duct and cystic artery were dissected out and critical view of safety was achieved. At that point in time, cystic duct was clipped with 2 clips proximal, 1 distal, and transected with laparoscopic scissor. Same thing was done for the cystic artery. It was clipped with 2 clips proximal and 1 distal and transected with laparoscopic scissor. At that point in time, gallbladder was dissected off the gallbladder fossa using hook electrical cautery and once the gallbladder completely was freed up from the gallbladder fossa, EndoCatch bag was introduced into the patient's abdomen and gallbladder was placed inside of the bag and the bag was closed. At that point in time, gallbladder fossa was inspected for hemostasis. Hemostasis was achieved with electrical cautery, hook electrical cautery, and at that point in time, the patient's gallbladder fossa and the abdominal cavity were copiously irrigated and fluid was suctioned out. At that point in time, the 11 mm trocar together with EndoCatch bag and the gallbladder were removed from patient's abdomen and passed off to the [facility] as a specimen. Fascial layer at the umbilical port site was closed with interrupted 0 Vicryl suture on UR-5 needle and subsequent to that, the patient's abdomen was fully desufflated. The rest of the trocars were removed from the patient's abdomen and skin was closed with 4-0 Monocryl suture in a running subcuticular fashion. At the end of the procedure, incision sites were infiltrated with Marcaine anesthetic. The patient's abdomen was washed and dried and Dermabond was applied to the incision sites. The patient was successfully extubated by the anesthesia team, transferred to the stretcher and taken to the recovery room in a stable condition. At the end of the procedure, all instrument counts, needles and sponges were correct. True Saeed MD cc: [id number] TT: 03/07/2017 20:35:16 dianne DUNCAN
[2017-03-08] MEDS: Meropenem 1 GM in Sodium Chloride 0.9% 100 ML IVPB SCH ×3 (01:56→16:28)
[2017-03-08 02:42] LABS: RBC URINE < 1 /hpf (0-3); URINE BACTERIA RARE (<OCC); URINE BILIRUBIN NEGATIVE (NEGATIVE); URINE BLOOD NEGATIVE (NEGATIVE); URINE COLOR YELLOW (YELLOW); URINE GLUCOSE (UA) NEG (Normal); URINE KETONE NEGATIVE (NEGATIVE); URINE LEUKOCYTE ESTERASE NEG Leu/uL (Negative); URINE PROTEIN NEGATIVE (NEGATIVE); WBC URINE 1 /hpf (0-5)
[2017-03-08] MEDS: Sodium Chloride 0.9% 1,000 ML IV SCH ×3 (05:56→13:15)
[2017-03-08 07:06] LABS: BASO # 0.1 K/uL (0.0-0.2); BASO % 0.6 % (0.0-2.0); EOS # 0.4 K/uL (0.0-0.7); EOS % 3.8 % (0.0-4.0); HEMATOCRIT 37.6 % (35.0-51.0); LYMPH # 2.4 K/uL (1.0-4.3); LYMPH % 22.4 % (20.0-40.0); MEAN CELL VOLUME 89.2 fl (80.0-94.0); MEAN CORPUSCULAR HEMOGLOBIN 30.9 pg (27.0-31.0); MEAN CORPUSCULAR HGB CONC 34.6 g/dL (33.0-37.0); MEAN PLATELET VOLUME 8.7 fl (7.2-11.7); MONO # 0.9 K/uL (0.0-0.8); MONO % 8.9 % (0.0-10.0); NEUT # 6.8 K/uL (1.8-7.0); NEUT % 64.3 % (50.0-75.0); RED CELL DISTRIBUTION WIDTH 12.4 % (11.5-14.5); WHITE BLOOD COUNT 10.6 K/uL (4.8-10.8)
[2017-03-08 07:18] LABS: ALB/GLOB RATIO 0.9 (1.0-2.1); ALKALINE PHOSPHATASE 101 U/L (38-126); ALT/SGPT 92 U/L (21-72); AST/SGOT 40 U/L (17-59); BILIRUBIN,TOTAL 0.8 mg/dl (0.2-1.3); BLOOD UREA NITROGEN 7 mg/dl (9-20); CALCIUM 9.1 mg/dL (8.4-10.2); CARBON DIOXIDE 29 mmol/L (22-30); CHLORIDE 99 mmol/L (98-107); GFR AFRICAN-AMERICAN > 60; GLUCOSE,RANDOM 127 mg/dL (75-110); POTASSIUM 4.1 MMOL/L (3.6-5.0); SODIUM 136 mmol/l (132-148); TOTAL PROTEIN 7.3 G/DL (6.3-8.2)
--- NOTE | 2017-03-08 07:41 | CP.PCM.PN ---
<Juan Alvarado - Last Filed: 03/08/17 07:35> Subjective - Date & Time of Evaluation Date of Evaluation: 03/08/17 Time of Evaluation: 07:00 - Subjective Subjective: General Surgery Pt S&E, [place]. Feeling better this AM. Minimal pain at incision sites. Tolerating diet. Ambulating, using IS. Tmax 100.1 overnight Objective - Vital Signs/Intake and Output Vital Signs (last 24 hours): Temp Pulse Resp BP Pulse Ox 100.1 F H 86 20 115/73 95 03/08/17 07:25 03/08/17 07:25 03/08/17 07:25 03/08/17 07:25 03/08/17 07:25 - Medications Medications: Current Medications Acetaminophen (Tylenol 650 Mg Supp) 650 mg WV Q6 PRN PRN Reason: Fever >100.4 F Last Admin: 03/03/17 08:34 Dose: 650 mg Acetaminophen (Tylenol 325mg Tab) 650 mg PO Q6 PRN PRN Reason: Fever >100.4 F Last Admin: 03/07/17 16:28 Dose: 650 mg Enoxaparin Sodium (Lovenox) 40 mg SC DAILY [facility] PRN Reason: Protocol Last Admin: 03/07/17 10:17 Dose: 40 mg Sodium Chloride (Sodium Chloride 0.9%) 1,000 mls @ 200 mls/hr IV .Q5H [facility] Last Admin: 03/08/17 05:56 Dose: Not Given Meropenem 1 gm/ Sodium (Chloride) 100 mls @ 100 mls/hr IVPB Q8 [facility] Last Admin: 03/08/17 01:56 Dose: 100 mls/hr Morphine Sulfate (Morphine) 2 mg IVP Q4 PRN PRN Reason: Pain, moderate (4-7) Last Admin: 03/08/17 01:53 Dose: 2 mg Ondansetron HCl (Zofran Inj) 4 mg IVP Q4H PRN PRN Reason: Nausea/Vomiting Pantoprazole Sodium (Protonix Ec Tab) 40 mg PO DAILY [facility] - Labs Labs: 03/07/17 07:20 03/08/17 05:55 PT 11.5 SECONDS (9.6-11.2) H 03/02/17 06:30 INR 1.11 (0.92-1.08) H 03/02/17 06:30 APTT 23.4 SECONDS (23.3-32.5) 03/02/17 06:30 - Constitutional Appears: Non-toxic, No Acute Distress - Head Exam Head Exam: ATRAUMATIC, NORMOCEPHALIC - Eye Exam Eye Exam: EOMI. absent: Scleral icterus - Respiratory Exam Respiratory Exam: NORMAL BREATHING PATTERN. absent: Respiratory Distress - GI/Abdominal Exam GI & Abdominal Exam: Guarding (mild), Soft, Tenderness (mild at incision sites) . absent: Distended, Firm, Rigid - Neurological Exam Neurological Exam: Alert, Awake - Skin Skin Exam: Dry, Warm Assessment and Plan - Assessment and Plan (Free Text) Assessment: 41M s/p lap nikhil POD #2 Plan: Monitor for fever F/U AM labs Analgesia Cont abx Encouraged Ambulation and IS use, Will D/W Dr. Christophe Alvarado PGY3 <True Saeed - Last Filed: 03/08/17 11:38> Subjective - Subjective Subjective: Patient was seen and examined at the bedside. Agree with resident's note above. Objective - Vital Signs/Intake and Output Vital Signs (last 24 hours): Temp Pulse Resp BP Pulse Ox 100.1 F H 86 20 115/73 95 03/08/17 07:25 03/08/17 07:25 03/08/17 07:25 03/08/17 07:25 03/08/17 07:25 - Medications Medications: Current Medications Acetaminophen (Tylenol 650 Mg Supp) 650 mg WV Q6 PRN PRN Reason: Fever >100.4 F Last Admin: 03/03/17 08:34 Dose: 650 mg Acetaminophen (Tylenol 325mg Tab) 650 mg PO Q6 PRN PRN Reason: Fever >100.4 F Last Admin: 03/07/17 16:28 Dose: 650 mg Enoxaparin Sodium (Lovenox) 40 mg SC DAILY [facility] PRN Reason: Protocol Last Admin: 03/08/17 08:08 Dose: 40 mg Sodium Chloride (Sodium Chloride 0.9%) 1,000 mls @ 200 mls/hr IV .Q5H [facility] Last Admin: 03/08/17 05:56 Dose: Not Given Meropenem 1 gm/ Sodium (Chloride) 100 mls @ 100 mls/hr IVPB Q8 [facility] Last Admin: 03/08/17 01:56 Dose: 100 mls/hr Morphine Sulfate (Morphine) 2 mg IVP Q4 PRN PRN Reason: Pain, moderate (4-7) Last Admin: 03/08/17 01:53 Dose: 2 mg Ondansetron HCl (Zofran Inj) 4 mg IVP Q4H PRN PRN Reason: Nausea/Vomiting Pantoprazole Sodium (Protonix Ec Tab) 40 mg PO DAILY [facility] Last Admin: 03/08/17 08:09 Dose: 40 mg - Labs Labs: 03/08/17 05:55 03/08/17 05:55 PT 11.5 SECONDS (9.6-11.2) H 03/02/17 06:30 INR 1.11 (0.92-1.08) H 03/02/17 06:30 APTT 23.4 SECONDS (23.3-32.5) 03/02/17 06:30 Assessment and Plan - Assessment and Plan (Free Text) Plan: - Medical team ordered CT scan, will follow up - Continue diet - Pain control - Insentive spirometry - Will follow
[2017-03-08] MEDS: Enoxaparin 40 mg Syringe SC SCH (08:08)
[2017-03-08] MEDS: Pantoprazole 40 mg EC Tab PO SCH (08:09)
[2017-03-08] MEDS ORDERED: Iohexol 240 (50 ml) PO ONE (10:15)
--- NOTE | 2017-03-08 13:26 | CP.PCM.CON ---
History of Present Illness - History of Present Illness History of Present Illness: post op fever s/p cholecystectomy, gallstone pancreatitis all cultures negative Pt denies fever chills cough or chest pain zosyn d/c'd started on Merrem Review of Systems - Constitutional Constitutional: As Per HPI - EENT Eyes: absent: As Per HPI, Blind Spots, Blurred Vision, Change in Vision, Decreased Night Vision, Diplopia, Discharge, Dry Eye, Exophthalmos, Floaters, Irritation, Itchy Eyes, Loss of Peripheral Vision, Pain, Photophobia, Requires Corrective Lenses, Sees Flashes, Spots in Vision, Tunnel Vision, Other Visual Disturbances, Loss of Vision, Other Ears: absent: As Per HPI, Decreased Hearing, Ear Discharge, Ear Pain, Tinnitus, Abnormal Hearing, Disequilibrium, Dizziness, Other Nose/Mouth/Throat: absent: As Per HPI, Epistaxis, Nasal Congestion, Nasal Discharge, Nasal Obstruction, Nasal Trauma, Nose Pain, Post Nasal Drip, Sinus Pain, Sinus Pressure, Bleeding Gums, Change in Voice, Dental Pain, Dry Mouth, Dysphagia, Halitosis, Hoarsness, Lip Swelling, Mouth Lesions, Mouth Pain, Odynophagia, Sore Throat, Throat Swelling, Tongue Swelling, Facial Pain, Neck Pain, Neck Mass, Other - Cardiovascular Cardiovascular: absent: As Per HPI, Acrocyanosis, Chest Pain, Chest Pain at Rest , Chest Pain with Activity, Claudication, Diaphoresis, Dyspnea, Dyspnea on Exertion, Edema, Irregular Heart Rhythm, Pain Radiating to Arm/Neck/Jaw, Leg Edema, Leg Ulcers, Lightheadedness, Orthopnea, Palpitations, Paroxysmal Nocturnal Dyspnea, Pedal Edema, Radiating Pain, Rapid Heart Rate, Slow Heart Rate, Syncope, Other - Respiratory Respiratory: absent: As Per HPI, Cough, Dyspnea, Hemoptysis, Dyspnea on Exertion , Wheezing, Snoring, Stridor, Pain on Inspiration, Chest Congestion, Excessive Mucous Production, Change in Mucous Color, Pain with Coughing, Other - Gastrointestinal Gastrointestinal: As Per HPI - Genitourinary Genitourinary: absent: As Per HPI, Change in Urinary Stream, Difficulty Urinating, Dysuria, Flank Pain, Hematuria, Pyuria, Nocturia, Urinary Incontinence, Urinary Frequency, Urinary Hesitance, Urinary Urgency, Voiding Freq/Small Amts, Freq UTI, Hx Renal/Bladder Calculi, Hx /Renal Surgery, Bladder Distension, Other - Musculoskeletal Musculoskeletal: absent: As Per HPI, Abnormal Gait, Arthralgias, Atrophy, Back Pain, Deformity, Joint Swelling, Limited Range of Motion, Loss of Height, Muscle Cramps, Muscle Weakness, Myalgias, Neck Pain, Numbness, Radiating Pain into Limb, Stiffness, Tingling, Other - Integumentary Integumentary: absent: As Per HPI, Acne, Alopecia, Bleeding Lesions, Change in Hair, Change in Nails, Change in Pigmentation, Changing Lesions, Dry Skin, Erythema, Furuncle, Hirsutism, Lesions, New Lesions, Non-Healing Lesions, Photosensitivity, Pruritus, Rash, Skin Pain, Skin Ulcer, Sores, Striae, Swelling , Unusual Bruising, Wounds, Jaundice, Other - Neurological Neurological: absent: As Per HPI, Abnormal Gait, Abnormal Hearing, Abnormal Movements, Abnormal Speech, Behavioral Changes, Burning Sensations, Confusion, Convulsions, Disequilibrium, Dizziness, Numbness, Focal Weakness, Frequent Falls , Headaches, Lack of Coordination, Loss of Vision, Memory Loss, Paresthesias, Radicular Pain, Restless Legs, Sensory Deficit, Syncope, Tingling, Tremor, Vertigo, Weakness, Other Visual Disturbances, Other - Psychiatric Psychiatric: absent: As Per HPI, Abnormal Sleep Pattern, Anhedonia, Anxiety, Auditory Hallucinations, Behavioral Changes, Change in Appetite, Change in Libido, Confusion, Depression, Difficulty Concentrating, Hallucinations, Homicidal Ideation, Hopelessness, Irritability, Memory Loss, Mood Swings, Panic Attacks, Paranoia, Suicidal Ideation, Visual Hallucinations, Tactile Hallucinations, Other - Endocrine Endocrine: absent: As Per HPI, Change in Body Appearance, Change in Libido, Cold Intolorance, Deepening of Voice, Excessive Sweating, Fatigue, Flushing, Heat Intolorance, Increase in Ring/Shoe/Hat Size, Palpitations, Polydipsia, Polyphagia, Polyuria, Other - Hematologic/Lymphatic Hematologic: absent: As Per HPI, Easy Bleeding, Easy Bruising, Lymphadenopathy, Other Past Patient History - Past Medical History & Family History Past Medical History?: Yes - Past Social History Alcohol: None - CARDIAC Hx Cardiac Disorders: No - PULMONARY Hx Respiratory Disorders: No - NEUROLOGICAL Hx Neurological Disorder: No - HEENT Hx HEENT Problems: No - RENAL Hx Chronic Kidney Disease: No - ENDOCRINE/METABOLIC Hx Endocrine Disorders: No - HEMATOLOGICAL/ONCOLOGICAL Hx Blood Disorders: No - INTEGUMENTARY Hx Dermatological Problems: No - MUSCULOSKELETAL/RHEUMATOLOGICAL Hx Musculoskeletal Disorders: No Hx Falls: No - GASTROINTESTINAL Hx Gastritis: Yes - GENITOURINARY/GYNECOLOGICAL Hx Genitourinary Disorders: No - PSYCHIATRIC Hx Substance Use: No - SURGICAL HISTORY Hx Surgeries: No - ANESTHESIA Hx Anesthesia: No Meds Allergies/Adverse Reactions: Allergies Allergy/AdvReac Type Severity Reaction Status Date / Time No Known Allergies Allergy Verified 03/01/17 14:31 - Medications Medications: Current Medications Acetaminophen (Tylenol 650 Mg Supp) 650 mg MS Q6 PRN PRN Reason: Fever >100.4 F Last Admin: 03/03/17 08:34 Dose: 650 mg Acetaminophen (Tylenol 325mg Tab) 650 mg PO Q6 PRN PRN Reason: Fever >100.4 F Last Admin: 03/07/17 16:28 Dose: 650 mg Enoxaparin Sodium (Lovenox) 40 mg SC DAILY [facility] PRN Reason: Protocol Last Admin: 03/08/17 08:08 Dose: 40 mg Sodium Chloride (Sodium Chloride 0.9%) 1,000 mls @ 200 mls/hr IV .Q5H [facility] Last Admin: 03/08/17 13:15 Dose: Not Given Meropenem 1 gm/ Sodium (Chloride) 100 mls @ 100 mls/hr IVPB Q8 [facility] Last Admin: 03/08/17 12:46 Dose: 100 mls/hr Morphine Sulfate (Morphine) 2 mg IVP Q4 PRN PRN Reason: Pain, moderate (4-7) Last Admin: 03/08/17 01:53 Dose: 2 mg Ondansetron HCl (Zofran Inj) 4 mg IVP Q4H PRN PRN Reason: Nausea/Vomiting Pantoprazole Sodium (Protonix Ec Tab) 40 mg PO DAILY [facility] Last Admin: 03/08/17 08:09 Dose: 40 mg Physical Exam - Constitutional Appears: Non-toxic, Chronically Ill - Head Exam Head Exam: NORMOCEPHALIC - Eye Exam Eye Exam: PERRL. absent: Scleral icterus - ENT Exam ENT Exam: Mucous Membranes Dry, Normal External Ear Exam, Normal Oropharynx - Neck Exam Neck exam: Negative for: Lymphadenopathy - Respiratory Exam Respiratory Exam: Decreased Breath Sounds, Clear to Auscultation Bilateral - Cardiovascular Exam Cardiovascular Exam: REGULAR RHYTHM, +S1, +S2 - GI/Abdominal Exam GI & Abdominal Exam: Diminished Bowel Sounds, Distended, Soft. absent: Guarding , Rebound, Rigid, Tenderness - Rectal Exam Rectal Exam: Deferred - Exam Exam: NORMAL INSPECTION - Extremities Exam Extremities exam: Positive for: pedal pulses present. Negative for: calf tenderness, pedal edema, tenderness - Back Exam Back exam: absent: CVA tenderness (L), CVA tenderness (R), paraspinal tenderness - Neurological Exam Neurological exam: Alert, CN II-XII Intact, Oriented x3, Reflexes Normal - Psychiatric Exam Psychiatric exam: Normal Mood - Skin Skin Exam: Dry, Intact Results - Vital Signs Recent Vital Signs: Last Vital Signs Temp 100.1 F H 03/08/17 07:25 Pulse 86 03/08/17 07:25 Resp 20 03/08/17 07:25 BP 115/73 03/08/17 07:25 Pulse Ox 95 03/08/17 07:25 - Labs Result Diagrams: 03/08/17 05:55 03/08/17 05:55 Labs: Laboratory Results - last 24 hr 03/08/17 03/08/17 03/08/17 02:34 05:55 05:55 WBC 10.6 RBC 4.21 L Hgb 13.0 Hct 37.6 MCV 89.2 MCH 30.9 MCHC 34.6 RDW 12.4 Plt Count 248 MPV 8.7 Neut % (Auto) 64.3 Lymph % (Auto) 22.4 [place] % (Auto) 8.9 Eos % (Auto) 3.8 Baso % (Auto) 0.6 Neut # 6.8 Lymph # 2.4 [place] # 0.9 H Eos # 0.4 Baso # 0.1 Sodium 136 Potassium 4.1 Chloride 99 Carbon Dioxide 29 Anion Gap 13 BUN 7 L Creatinine 0.8 Est GFR ( Amer) > 60 Est GFR (Non-Af Amer) > 60 Random Glucose 127 H Calcium 9.1 Total Bilirubin 0.8 AST 40 ALT 92 H Alkaline Phosphatase 101 Total Protein 7.3 Albumin 3.5 Globulin 3.7 Albumin/Globulin Ratio 0.9 L Urine Color Yellow Urine Clarity Clear Urine pH 7.0 Ur Specific [place] 1.012 Urine Protein Negative Urine Glucose (UA) Neg Urine Ketones Negative Urine Blood Negative Urine Nitrate Negative Urine Bilirubin Negative Urine Urobilinogen 4.0 Ur Leukocyte Esterase Neg Urine RBC (Auto) < 1 Urine Microscopic WBC 1 Urine Bacteria Rare Assessment & Plan (1) Fever Status: Acute (2) Fever Status: Acute (3) Abnormal LFTs Status: Acute (4) Acute pancreatitis Status: Acute (5) Cholelithiasis Status: Acute (6) DVT prophylaxis Status: Acute (7) Pancreatitis Status: Acute - Assessment and Plan (Free Text) Assessment: recurrent fevers without definite source- drug fever? switched to merrem if fevers persist add antifungal and repeat CT abd to r/o abscess
[2017-03-08] MEDS ORDERED: Iohexol 300 100 ML IJ ONE (13:34)
[2017-03-08] MEDS ORDERED: Sodium Chloride 0.9% 50 ML IV ONE (13:34)
--- NOTE | 2017-03-08 14:58 | CP.PCM.PN ---
Subjective - Date & Time of Evaluation Date of Evaluation: 03/08/17 Time of Evaluation: 11:00 - Subjective Subjective: Patient was seen and evaluated bedside.Feeling better . Still febrile overnight with Tmax 101.7 . pain is better controlled but still with some LUQ pain. No acute issues overnight. tolerating diet, passing flatus Objective - Vital Signs/Intake and Output Vital Signs (last 24 hours): Temp Pulse Resp BP Pulse Ox 100.1 F H 86 20 115/73 95 03/08/17 07:25 03/08/17 07:25 03/08/17 07:25 03/08/17 07:25 03/08/17 07:25 - Medications Medications: Current Medications Acetaminophen (Tylenol 650 Mg Supp) 650 mg WV Q6 PRN PRN Reason: Fever >100.4 F Last Admin: 03/03/17 08:34 Dose: 650 mg Acetaminophen (Tylenol 325mg Tab) 650 mg PO Q6 PRN PRN Reason: Fever >100.4 F Last Admin: 03/07/17 16:28 Dose: 650 mg Enoxaparin Sodium (Lovenox) 40 mg SC DAILY [facility] PRN Reason: Protocol Last Admin: 03/08/17 08:08 Dose: 40 mg Sodium Chloride (Sodium Chloride 0.9%) 1,000 mls @ 200 mls/hr IV .Q5H [facility] Last Admin: 03/08/17 13:15 Dose: Not Given Meropenem 1 gm/ Sodium (Chloride) 100 mls @ 100 mls/hr IVPB Q8 [facility] Last Admin: 03/08/17 12:46 Dose: 100 mls/hr Morphine Sulfate (Morphine) 2 mg IVP Q4 PRN PRN Reason: Pain, moderate (4-7) Last Admin: 03/08/17 01:53 Dose: 2 mg Ondansetron HCl (Zofran Inj) 4 mg IVP Q4H PRN PRN Reason: Nausea/Vomiting Pantoprazole Sodium (Protonix Ec Tab) 40 mg PO DAILY [facility] Last Admin: 03/08/17 08:09 Dose: 40 mg - Labs Labs: 03/08/17 05:55 03/08/17 05:55 PT 11.5 SECONDS (9.6-11.2) H 03/02/17 06:30 INR 1.11 (0.92-1.08) H 03/02/17 06:30 APTT 23.4 SECONDS (23.3-32.5) 03/02/17 06:30 - Constitutional Appears: Non-toxic, No Acute Distress - Head Exam Head Exam: ATRAUMATIC, NORMAL INSPECTION, NORMOCEPHALIC - Eye Exam Eye Exam: EOMI, Normal appearance, PERRL Pupil Exam: NORMAL ACCOMODATION - ENT Exam ENT Exam: Mucous Membranes Moist, Normal Exam - Neck Exam Neck Exam: Full ROM, Normal Inspection - Respiratory Exam Respiratory Exam: Clear to Ausculation Bilateral, NORMAL BREATHING PATTERN. absent: Rales, Rhonchi, Wheezes - Cardiovascular Exam Cardiovascular Exam: REGULAR RHYTHM, RRR, +S1, +S2. absent: JVD - GI/Abdominal Exam GI & Abdominal Exam: Distended, Soft, Normal Bowel Sounds. absent: Guarding, Rebound - Rectal Exam Rectal Exam: Deferred - Extremities Exam Extremities Exam: Full ROM, Normal Capillary Refill, Normal Inspection. absent : Calf Tenderness, Pedal Edema - Back Exam Back Exam: NORMAL INSPECTION - Neurological Exam Neurological Exam: Alert, Awake, CN II-XII Intact, Oriented x3 - Psychiatric Exam Psychiatric exam: Normal Affect, Normal Mood - Skin Skin Exam: Dry, Intact, Normal Color, Warm Assessment and Plan - Assessment and Plan (Free Text) Assessment: 41 y/o gent with no significant PMH, no hx of ETOH, came because of abdominal pain and N/V. CT of abd showed acute pancreatitis and filling defect in the 2nd portion of the duodenum that may represent an edematous ampulla but the possibility of a mass must also be considered.Fatty infiltration of the liver. Patient admitted to med/surg with diagnosis of acute gallstone pancreatitis and cholelithiasis. GI and surgery were consulted . Started on IVF and pain management . MRCP showed no CBD stone . At present pain has improved, lipase and LFTs trended down. Underwent Lap Cholecystectomy 03/06. Pt has persistent fever despite IV Zosyn so ID was consulted and switched to Meropenem IV .. (1) Acute pancreatitis, likely Gallstone Pancreatitis, improved improving CT abdomen showed acute Pancreatitis and gallstones MRCP showed no CBD stone Surgery and GI consulted Lipase was markedly elevated to 17K on admission and now normalized No need for ERCP as per GI since lipase , LFT-s trending down and clinically patient improved underwent laparascopic cholecystectomy 03/06 Due to persistent fever ID was consulted and antibiotics changed from Zosyn to Meropenem. Will perform CT abdomen and pelvis with contrast today to rule out pseudocyst / necrosis Continue IVF, pain management Tolerating diet diet (2) Cholelithiasis s/p Lap Cholecystectomy s/p lap cholecystectomy Continue pain management PRN Promote ambulation abx changed to IV Meropenem Tolerating regular diet (3) Abnormal LFTs improving Most likely secondary to Choledocholithiasis As per GI may have passed stones (4) DVT prophylaxis Lovenox
--- NOTE | 2017-03-08 15:25 | CT ---
PROCEDURE: CT Abdomen and Pelvis with contrast HISTORY: acute pancreatitis with persistent fever r/o cyst COMPARISON: 03/01/2017 CT abdomen and pelvis. Summary of findings on the comparison examination: Findings consistent with acute pancreatitis. 03/01/2017 MRCP TECHNIQUE: Contrast dose: 95 cc Omnipaque 300. Radiation dose: Total exam DLP = 978.21 mGy-cm. This CT exam was performed using one or more of the following dose reduction techniques: Automated exposure control, adjustment of the mA and/or kV according to patient size, and/or use of iterative reconstruction technique. FINDINGS: LOWER THORAX: New and presumed dependent atelectasis both lung bases approximately symmetrical. LIVER: Hepatic steatosis. No focal masses. No intrahepatic bile duct dilatation or perihepatic ascites. GALLBLADDER AND BILE DUCTS: Status post cholecystectomy. No abnormality is seen in the gallbladder fossa. PANCREAS: Evidence of acute pancreatitis now affecting portions of the body and tail of the pancreas not seen previously. Edematous changes in the head of the pancreas. No evidence of necrotizing pancreatitis or pseudocyst formation. SPLEEN: Unremarkable. ADRENALS: Unremarkable. No mass. KIDNEYS AND URETERS: Unremarkable. No hydronephrosis. No solid mass. VASCULATURE: Unremarkable. No aortic aneurysm. BOWEL: Unremarkable. No obstruction. No gross mural thickening. APPENDIX: No abnormalities to suggest acute appendicitis. No right lower quadrant inflammatory processes identified. PERITONEUM: Unremarkable. No free fluid. No free air. LYMPH NODES: Unremarkable. No enlarged lymph nodes. BLADDER: Unremarkable. REPRODUCTIVE: Unremarkable. BONES: No acute fracture. OTHER FINDINGS: None. IMPRESSION: 1. Evolving acute pancreatitis no affecting portions of the pancreatic body and tail not seen previously. Phlegmonous findings without pseudocyst formation. No evidence of necrotizing pancreatitis. 2. Expected postoperative findings status post recent cholecystectomy. Fluid in the gallbladder fossa noted as an expected postoperative observation. 3. Basilar atelectasis new compared to the prior study.
[2017-03-09] MEDS: Meropenem 1 GM in Sodium Chloride 0.9% 100 ML IVPB SCH ×3 (00:37→16:03)
[2017-03-09] MEDS: Pantoprazole 40 mg EC Tab PO SCH (09:48)
[2017-03-09] MEDS: Enoxaparin 40 mg Syringe SC SCH (09:48)
--- NOTE | 2017-03-09 14:15 | CP.PCM.PN ---
Subjective - Date & Time of Evaluation Date of Evaluation: 03/09/17 Time of Evaluation: 12:00 - Subjective Subjective: No fever this am was febrile yesterday pt states he has very minimal abd pain seen ambulating in the unit tolerating PO diet denies CP, no SOB H Objective - Vital Signs/Intake and Output Vital Signs (last 24 hours): Temp Pulse Resp BP Pulse Ox 99.6 F 89 20 116/73 95 03/09/17 07:26 03/09/17 07:26 03/09/17 07:26 03/09/17 07:26 03/09/17 07:26 - Medications Medications: Current Medications Acetaminophen (Tylenol 650 Mg Supp) 650 mg WA Q6 PRN PRN Reason: Fever >100.4 F Last Admin: 03/03/17 08:34 Dose: 650 mg Acetaminophen (Tylenol 325mg Tab) 650 mg PO Q6 PRN PRN Reason: Fever >100.4 F Last Admin: 03/08/17 16:45 Dose: 650 mg Enoxaparin Sodium (Lovenox) 40 mg SC DAILY [facility] PRN Reason: Protocol Last Admin: 03/09/17 09:48 Dose: 40 mg Sodium Chloride (Sodium Chloride 0.9%) 1,000 mls @ 200 mls/hr IV .Q5H [facility] Last Admin: 03/08/17 13:15 Dose: Not Given Meropenem 1 gm/ Sodium (Chloride) 100 mls @ 100 mls/hr IVPB Q8 [facility] Last Admin: 03/09/17 09:49 Dose: 100 mls/hr Morphine Sulfate (Morphine) 2 mg IVP Q4 PRN PRN Reason: Pain, moderate (4-7) Last Admin: 03/09/17 13:19 Dose: 2 mg Ondansetron HCl (Zofran Inj) 4 mg IVP Q4H PRN PRN Reason: Nausea/Vomiting Pantoprazole Sodium (Protonix Ec Tab) 40 mg PO DAILY [facility] Last Admin: 03/09/17 09:48 Dose: 40 mg - Labs Labs: 03/08/17 05:55 03/08/17 05:55 PT 11.5 SECONDS (9.6-11.2) H 03/02/17 06:30 INR 1.11 (0.92-1.08) H 03/02/17 06:30 APTT 23.4 SECONDS (23.3-32.5) 03/02/17 06:30 - Constitutional Appears: No Acute Distress - Head Exam Head Exam: ATRAUMATIC, NORMAL INSPECTION, NORMOCEPHALIC - Eye Exam Eye Exam: EOMI, Normal appearance, PERRL Pupil Exam: NORMAL ACCOMODATION - ENT Exam ENT Exam: Mucous Membranes Moist, Normal External Ear Exam - Neck Exam Neck Exam: Full ROM. absent: Meningismus - Respiratory Exam Respiratory Exam: NORMAL BREATHING PATTERN. absent: Respiratory Distress - Cardiovascular Exam Cardiovascular Exam: REGULAR RHYTHM, +S1, +S2 - GI/Abdominal Exam GI & Abdominal Exam: Distended, Soft, nonender, Hypoactive Bowel Sounds - Extremities Exam Extremities Exam: Full ROM, Normal Capillary Refill. absent: Calf Tenderness, Pedal Edema - Back Exam Back Exam: Full ROM, NORMAL INSPECTION. absent: CVA tenderness (L), CVA tenderness (R), paraspinal tenderness, vertebral tenderness - Neurological Exam Neurological Exam: Alert, Awake, CN II-XII Intact, Normal Gait, Oriented x3 Neuro motor strength exam: Left Upper Extremity: 5, Right Upper Extremity: 5, Left Lower Extremity: 5, Right Lower Extremity: 5 - Psychiatric Exam Psychiatric exam: Normal Affect, Normal Mood - Skin Skin Exam: Dry, Normal Color, Warm Assessment and Plan (1) Acute pancreatitis Status: Acute (2) Cholelithiasis Status: Acute (3) Abnormal LFTs Status: Acute (4) DVT prophylaxis Status: Acute - Assessment and Plan (Free Text) Assessment: 41 y/o gent with no significant PMH, no hx of ETOH, came because of abdominal pain and N/V. CT of abd showed acute pancreatitis and filling defect in the 2nd portion of the duodenum that may represent an edematous ampulla but the possibility of a mass must also be considered.Fatty infiltration of the liver. Patient admitted to med/surg with diagnosis of acute gallstone pancreatitis and cholelithiasis. GI and surgery were consulted . Started on IVF and pain management . MRCP showed no CBD stone . At present pain has improved, lipase and LFTs trended down. Underwent Lap Cholecystectomy 03/06. Pt had persistent fever despite IV Zosyn so ID was consulted and switched to Meropenem IV .. (1) Acute pancreatitis, likely Gallstone Pancreatitis, improved improving CT abdomen showed acute Pancreatitis and gallstones MRCP showed no CBD stone Surgery and GI consulted Lipase was markedly elevated to 17K on admission and now normalized No need for ERCP as per GI since lipase , LFT-s trending down and clinically patient improved underwent laparascopic cholecystectomy 03/06 Due to persistent fever ID was consulted and antibiotics changed from Zosyn to Meropenem. rpt CT abdomen and pelvis showed phlegmon in pancreas Continue IVF, pain management Tolerating diet diet Discussed with Dr Will tam to given 1 more day of IV antibiotics (2) Cholelithiasis s/p Lap Cholecystectomy s/p lap cholecystectomy Continue pain management PRN Promote ambulation abx changed to IV Meropenem Tolerating regular diet cleared for d/c from Surgical standpoint (3) Abnormal LFTs improving Most likely secondary to Choledocholithiasis As per GI may have passed stones (4) DVT prophylaxis Lovenox
--- NOTE | 2017-03-09 14:53 | CP.PCM.PN ---
Subjective - Date & Time of Evaluation Date of Evaluation: 03/09/17 Time of Evaluation: 09:00 - Subjective Subjective: fever on and off + early phlegmon IV merrem in progress cont rx possible d/c and follow up with Surgery Objective - Vital Signs/Intake and Output Vital Signs (last 24 hours): Temp Pulse Resp BP Pulse Ox 99.6 F 89 20 116/73 95 03/09/17 07:26 03/09/17 07:26 03/09/17 07:26 03/09/17 07:26 03/09/17 07:26 - Medications Medications: Current Medications Acetaminophen (Tylenol 650 Mg Supp) 650 mg [place] Q6 PRN PRN Reason: Fever >100.4 F Last Admin: 03/03/17 08:34 Dose: 650 mg Acetaminophen (Tylenol 325mg Tab) 650 mg PO Q6 PRN PRN Reason: Fever >100.4 F Last Admin: 03/08/17 16:45 Dose: 650 mg Enoxaparin Sodium (Lovenox) 40 mg SC DAILY [facility] PRN Reason: Protocol Last Admin: 03/09/17 09:48 Dose: 40 mg Sodium Chloride (Sodium Chloride 0.9%) 1,000 mls @ 200 mls/hr IV .Q5H [facility] Last Admin: 03/08/17 13:15 Dose: Not Given Meropenem 1 gm/ Sodium (Chloride) 100 mls @ 100 mls/hr IVPB Q8 [facility] Last Admin: 03/09/17 09:49 Dose: 100 mls/hr Morphine Sulfate (Morphine) 2 mg IVP Q4 PRN PRN Reason: Pain, moderate (4-7) Last Admin: 03/09/17 13:19 Dose: 2 mg Ondansetron HCl (Zofran Inj) 4 mg IVP Q4H PRN PRN Reason: Nausea/Vomiting Pantoprazole Sodium (Protonix Ec Tab) 40 mg PO DAILY [facility] Last Admin: 03/09/17 09:48 Dose: 40 mg - Labs Labs: 03/08/17 05:55 03/08/17 05:55 PT 11.5 SECONDS (9.6-11.2) H 03/02/17 06:30 INR 1.11 (0.92-1.08) H 03/02/17 06:30 APTT 23.4 SECONDS (23.3-32.5) 03/02/17 06:30 - Constitutional Appears: Non-toxic, Chronically Ill - Head Exam Head Exam: NORMOCEPHALIC - Eye Exam Eye Exam: absent: Scleral icterus - ENT Exam ENT Exam: Mucous Membranes Dry - Neck Exam Neck Exam: absent: Lymphadenopathy - Respiratory Exam Respiratory Exam: Decreased Breath Sounds, Clear to Ausculation Bilateral - Cardiovascular Exam Cardiovascular Exam: REGULAR RHYTHM, +S1, +S2 - GI/Abdominal Exam GI & Abdominal Exam: Distended, Soft. absent: Tenderness - Rectal Exam Rectal Exam: Deferred - Exam Exam: NORMAL INSPECTION - Extremities Exam Extremities Exam: absent: Calf Tenderness, Pedal Edema - Back Exam Back Exam: absent: CVA tenderness (L), CVA tenderness (R) - Neurological Exam Neurological Exam: Alert, Awake, Oriented x3 Assessment and Plan (1) Fever Status: Acute (2) Fever Status: Acute (3) Abnormal LFTs Status: Acute (4) Acute pancreatitis Status: Acute (5) Cholelithiasis Status: Acute (6) DVT prophylaxis Status: Acute (7) Pancreatitis Status: Acute
--- NOTE | 2017-03-09 15:06 | CP.PCM.PN ---
Subjective - Date & Time of Evaluation Date of Evaluation: 03/09/17 Time of Evaluation: 14:30 - Subjective Subjective: Patient was seen and examined at the bedside. Tolerating diet, pain is well controlled Objective - Vital Signs/Intake and Output Vital Signs (last 24 hours): Temp Pulse Resp BP Pulse Ox 99.6 F 89 20 116/73 95 03/09/17 07:26 03/09/17 07:26 03/09/17 07:26 03/09/17 07:26 03/09/17 07:26 - Medications Medications: Current Medications Acetaminophen (Tylenol 650 Mg Supp) 650 mg [place] Q6 PRN PRN Reason: Fever >100.4 F Last Admin: 03/03/17 08:34 Dose: 650 mg Acetaminophen (Tylenol 325mg Tab) 650 mg PO Q6 PRN PRN Reason: Fever >100.4 F Last Admin: 03/08/17 16:45 Dose: 650 mg Enoxaparin Sodium (Lovenox) 40 mg SC DAILY [facility] PRN Reason: Protocol Last Admin: 03/09/17 09:48 Dose: 40 mg Sodium Chloride (Sodium Chloride 0.9%) 1,000 mls @ 200 mls/hr IV .Q5H [facility]S [facility] Last Admin: 03/08/17 13:15 Dose: Not Given Meropenem 1 gm/ Sodium (Chloride) 100 mls @ 100 mls/hr IVPB Q8 [facility] 234 [facility]S AT [facility] Last Admin: 03/09/17 09:49 Dose: 100 mls/hr Morphine Sulfate (Morphine) 2 mg IVP Q4 PRN PRN Reason: Pain, moderate (4-7) Last Admin: 03/09/17 13:19 Dose: 2 mg Ondansetron HCl (Zofran Inj) 4 mg IVP Q4H PRN PRN Reason: Nausea/Vomiting Pantoprazole Sodium (Protonix Ec Tab) 40 mg PO DAILY [facility] 234 B[facility]S AT [facility] Last Admin: 03/09/17 09:48 Dose: 40 mg - Labs Labs: 03/08/17 05:55 03/08/17 05:55 PT 11.5 SECONDS (9.6-11.2) H 03/02/17 06:30 INR 1.11 (0.92-1.08) H 03/02/17 06:30 APTT 23.4 SECONDS (23.3-32.5) 03/02/17 06:30 - Constitutional Appears: Well, Non-toxic, No Acute Distress - Head Exam Head Exam: ATRAUMATIC, NORMAL INSPECTION, NORMOCEPHALIC - Eye Exam Eye Exam: EOMI, Normal appearance, PERRL Pupil Exam: NORMAL ACCOMODATION, PERRL - ENT Exam ENT Exam: Mucous Membranes Moist, Normal Exam - Neck Exam Neck Exam: Full ROM, Normal Inspection - Respiratory Exam Respiratory Exam: NORMAL BREATHING PATTERN - Cardiovascular Exam Cardiovascular Exam: REGULAR RHYTHM, +S1, +S2 - GI/Abdominal Exam GI & Abdominal Exam: Soft, Normal Bowel Sounds Additional comments: very mild ej-incisional tenderness, ND, no rebound, no guarding, incisions clean, no erythema, no drainage, dermobond in place - Rectal Exam Rectal Exam: Deferred - Extremities Exam Extremities Exam: Full ROM, Normal Inspection - Neurological Exam Neurological Exam: Alert, Awake, Normal Gait, Oriented x3 - Psychiatric Exam Psychiatric exam: Normal Affect, Normal Mood - Skin Skin Exam: Dry, Intact, Normal Color, Warm Assessment and Plan - Assessment and Plan (Free Text) Assessment: 41 y.o. male s/p Lap nikhil Plan: - Continue diet - pain control - Antibiotics as per ID - Repeat labs in am - Will follow
[2017-03-09] MEDS: Oxycodone/Acetaminophen 5/325 mg Tab PO PRN ×2 (16:49→20:54)
[2017-03-09] MEDS: Sodium Chloride 0.9% 1,000 ML IV SCH (22:03)
[2017-03-10 00:09] VITALS: O2SAT 97
[2017-03-10] MEDS: Meropenem 1 GM in Sodium Chloride 0.9% 100 ML IVPB SCH ×2 (00:45→08:26)
[2017-03-10] MEDS: Sodium Chloride 0.9% 1,000 ML IV SCH ×3 (02:28→12:11)
[2017-03-10] MEDS: Oxycodone/Acetaminophen 5/325 mg Tab PO PRN ×2 (05:44→11:42)
[2017-03-10 06:51] LABS: BASO # 0.1 K/uL (0.0-0.2); EOS # 0.4 K/uL (0.0-0.7); EOS % 4.4 % (0.0-4.0); HEMATOCRIT 40.6 % (35.0-51.0); LYMPH % 22.1 % (20.0-40.0); MEAN CORPUSCULAR HEMOGLOBIN 29.9 pg (27.0-31.0); MEAN CORPUSCULAR HGB CONC 33.2 g/dL (33.0-37.0); MEAN PLATELET VOLUME 8.1 fl (7.2-11.7); MONO # 0.7 K/uL (0.0-0.8); NEUT % 64.5 % (50.0-75.0); NRBC % 0.1 % (0.0-0.0); RED CELL DISTRIBUTION WIDTH 12.7 % (11.5-14.5); WHITE BLOOD COUNT 9.3 K/uL (4.8-10.8)
[2017-03-10 07:13] LABS: ALKALINE PHOSPHATASE 280 U/L (38-126); ALT/SGPT 114 U/L (21-72); AST/SGOT 57 U/L (17-59); BILIRUBIN,TOTAL 0.6 mg/dl (0.2-1.3); BLOOD UREA NITROGEN 18 mg/dl (9-20); CALCIUM 9.5 mg/dL (8.4-10.2); CARBON DIOXIDE 29 mmol/L (22-30); CHLORIDE 99 mmol/L (98-107); GFR AFRICAN-AMERICAN > 60; GLUCOSE,RANDOM 124 mg/dL (75-110); POTASSIUM 4.3 MMOL/L (3.6-5.0); SODIUM 138 mmol/l (132-148); TOTAL PROTEIN 7.6 G/DL (6.3-8.2)
[2017-03-10 07:48] VITALS: BP 117/81; PULSE 78; RESP 20; TEMP 98.4
--- NOTE | 2017-03-10 07:57 | CP.PCM.PN ---
Subjective - Date & Time of Evaluation Date of Evaluation: 03/10/17 Time of Evaluation: 07:20 - Subjective Subjective: General Surgery Pt S&E, NAEO. Afebrile. No complaints. Objective - Vital Signs/Intake and Output Vital Signs (last 24 hours): Temp Pulse Resp BP Pulse Ox 98.4 F 78 20 117/81 97 03/10/17 07:47 03/10/17 07:47 03/10/17 07:47 03/10/17 07:47 03/10/17 07:47 - Medications Medications: Current Medications Acetaminophen (Tylenol 650 Mg Supp) 650 mg WA Q6 PRN PRN Reason: Fever >100.4 F Last Admin: 03/03/17 08:34 Dose: 650 mg Acetaminophen (Tylenol 325mg Tab) 650 mg PO Q6 PRN PRN Reason: Fever >100.4 F Last Admin: 03/08/17 16:45 Dose: 650 mg Enoxaparin Sodium (Lovenox) 40 mg SC DAILY [facility] PRN Reason: Protocol Last Admin: 03/09/17 09:48 Dose: 40 mg Sodium Chloride (Sodium Chloride 0.9%) 1,000 mls @ 200 mls/hr IV .Q5H [facility] Last Admin: 03/10/17 07:32 Dose: Not Given Meropenem 1 gm/ Sodium (Chloride) 100 mls @ 100 mls/hr IVPB Q8 [facility] Last Admin: 03/10/17 00:45 Dose: 100 mls/hr Morphine Sulfate (Morphine) 2 mg IVP Q4 PRN PRN Reason: Pain, severe (8-10) Ondansetron HCl (Zofran Inj) 4 mg IVP Q4H PRN PRN Reason: Nausea/Vomiting Oxycodone/Acetaminophen (Percocet 5/325 Mg Tab) 1 tab PO Q4 PRN PRN Reason: Pain, moderate (4-7) Stop: 03/12/17 16:07 Last Admin: 03/10/17 05:44 Dose: 1 tab Pantoprazole Sodium (Protonix Ec Tab) 40 mg PO DAILY [facility] Last Admin: 03/09/17 09:48 Dose: 40 mg - Labs Labs: 03/10/17 05:55 03/10/17 05:55 PT 11.5 SECONDS (9.6-11.2) H 03/02/17 06:30 INR 1.11 (0.92-1.08) H 03/02/17 06:30 APTT 23.4 SECONDS (23.3-32.5) 03/02/17 06:30 - Constitutional Appears: Non-toxic, No Acute Distress - Head Exam Head Exam: ATRAUMATIC, NORMOCEPHALIC - Respiratory Exam Respiratory Exam: NORMAL BREATHING PATTERN. absent: Respiratory Distress - GI/Abdominal Exam GI & Abdominal Exam: Soft, Tenderness (mild at incisions). absent: Distended Additional comments: incisions C/D/I - Neurological Exam Neurological Exam: Alert, Awake - Skin Skin Exam: Dry, Warm Assessment and Plan - Assessment and Plan (Free Text) Assessment: 41 y.o. male s/p Lap nikhil POD#4 Plan: - Continue diet - Abx per ID Will D/W Dr. Christophe Alvarado PGY3
[2017-03-10] MEDS: Pantoprazole 40 mg EC Tab PO SCH (08:27)
[2017-03-10] MEDS: Enoxaparin 40 mg Syringe SC SCH (08:27)
--- NOTE | 2017-03-10 12:29 | CP.PCM.DIS ---
Provider - Provider Date of Admission: 03/01/17 14:56 Attending physician: Rickie Guillory MD Consults: Surgery consult ID consult GI consult Time Spent in preparation of Discharge (in minutes): 15 Hospital Course - Lab Results Lab Results: Micro Results 03/07/17 17:15 Blood Blood Culture - Preliminary NO GROWTH AFTER 48 HOURS 03/07/17 16:30 Blood Blood Culture - Preliminary NO GROWTH AFTER 48 HOURS 03/01/17 15:54 Blood Blood Culture - Final NO GROWTH AFTER 5 DAYS 03/01/17 15:54 Blood Gram Stain - Final TEST NOT PERFORMED 03/01/17 15:30 Blood Blood Culture - Final NO GROWTH AFTER 5 DAYS 03/01/17 15:30 Blood Gram Stain - Final TEST NOT PERFORMED Most Recent Lab Values WBC 9.3 K/uL (4.8-10.8) 03/10/17 05:55 RBC 4.51 Mil/uL (4.40-5.90) 03/10/17 05:55 Hgb 13.5 g/dL (12.0-18.0) 03/10/17 05:55 Hct 40.6 % (35.0-51.0) 03/10/17 05:55 MCV 90.0 fl (80.0-94.0) 03/10/17 05:55 MCH 29.9 pg (27.0-31.0) 03/10/17 05:55 MCHC 33.2 g/dL (33.0-37.0) 03/10/17 05:55 RDW 12.7 % (11.5-14.5) 03/10/17 05:55 Plt Count 303 K/uL (130-400) 03/10/17 05:55 MPV 8.1 fl (7.2-11.7) 03/10/17 05:55 Neut % (Auto) 64.5 % (50.0-75.0) 03/10/17 05:55 Lymph % (Auto) 22.1 % (20.0-40.0) 03/10/17 05:55 [place] % (Auto) 8.0 % (0.0-10.0) 03/10/17 05:55 Eos % (Auto) 4.4 % (0.0-4.0) H 03/10/17 05:55 Baso % (Auto) 1.0 % (0.0-2.0) 03/10/17 05:55 Neut # 6.0 K/uL (1.8-7.0) 03/10/17 05:55 Lymph # 2.0 K/uL (1.0-4.3) 03/10/17 05:55 [place] # 0.7 K/uL (0.0-0.8) 03/10/17 05:55 Eos # 0.4 K/uL (0.0-0.7) 03/10/17 05:55 Baso # 0.1 K/uL (0.0-0.2) 03/10/17 05:55 PT 11.5 SECONDS (9.6-11.2) H 03/02/17 06:30 INR 1.11 (0.92-1.08) H 03/02/17 06:30 APTT 23.4 SECONDS (23.3-32.5) 03/02/17 06:30 Sodium 138 mmol/l (132-148) 03/10/17 05:55 Potassium 4.3 MMOL/L (3.6-5.0) 03/10/17 05:55 Chloride 99 mmol/L (98-107) 03/10/17 05:55 Carbon Dioxide 29 mmol/L (22-30) 03/10/17 05:55 Anion Gap 15 (10-20) 03/10/17 05:55 BUN 18 mg/dl (9-20) 03/10/17 05:55 Creatinine 0.9 mg/dL (0.8-1.5) 03/10/17 05:55 Est GFR ( Amer) > 60 03/10/17 05:55 Est GFR (Non-Af Amer) > 60 03/10/17 05:55 Random Glucose 124 mg/dL (75-110) H 03/10/17 05:55 Hemoglobin A1c 6.2 % (4.2-6.5) 03/04/17 06:00 Lactic Acid 2.0 MMOL/L (0.7-2.1) 03/01/17 15:30 Calcium 9.5 mg/dL (8.4-10.2) 03/10/17 05:55 Total Bilirubin 0.6 mg/dl (0.2-1.3) 03/10/17 05:55 AST 57 U/L (17-59) 03/10/17 05:55 ALT 114 U/L (21-72) H D 03/10/17 05:55 Alkaline Phosphatase 280 U/L (38-126) H D 03/10/17 05:55 Lactate Dehydrogenase 611 U/L (313-618) 03/02/17 06:30 Total Protein 7.6 G/DL (6.3-8.2) 03/10/17 05:55 Albumin 3.8 g/dL (3.5-5.0) 03/10/17 05:55 Globulin 3.9 gm/dL (2.2-3.9) 03/10/17 05:55 Albumin/Globulin Ratio 1.0 (1.0-2.1) 03/10/17 05:55 Triglycerides 121 mg/DL (0-149) 03/03/17 07:45 Cholesterol 141 mg/dL (0-199) 03/03/17 07:45 LDL Cholesterol Direct 72 mg/dL (0-129) 03/03/17 07:45 HDL Cholesterol 34 MG/DL (30-70) 03/03/17 07:45 Lipase 223 U/L (23-300) 03/06/17 05:55 Urine Color Yellow (YELLOW) 03/08/17 02:34 Urine Clarity Clear (Clear) 03/08/17 02:34 Urine pH 7.0 (5.0-8.0) 03/08/17 02:34 Ur Specific [place] 1.012 (1.003-1.030) 03/08/17 02:34 Urine Protein Negative mg/dL (NEGATIVE) 03/08/17 02:34 Urine Glucose (UA) Neg mg/dL (Normal) 03/08/17 02:34 Urine Ketones Negative mg/dL (NEGATIVE) 03/08/17 02:34 Urine Blood Negative (NEGATIVE) 03/08/17 02:34 Urine Nitrate Negative (NEGATIVE) 03/08/17 02:34 Urine Bilirubin Negative (NEGATIVE) 03/08/17 02:34 Urine Urobilinogen 4.0 mg/dL (0.2-1.0) 03/08/17 02:34 Ur Leukocyte Esterase Neg Jacinta/uL (Negative) 03/08/17 02:34 Urine RBC (Auto) < 1 /hpf (0-3) 03/08/17 02:34 Urine Microscopic WBC 1 /hpf (0-5) 03/08/17 02:34 Ur Squamous Epith Cells < 1 /hpf (0-5) 03/01/17 19:57 Urine Bacteria Rare (<OCC) 03/08/17 02:34 - Hospital Course Hospital Course: 41 y/o gent with no significant PMH, no hx of ETOH, came because of abdominal pain and N/V. CT of abd showed acute pancreatitis and filling defect in the 2nd portion of the duodenum that may represent an edematous ampulla but the possibility of a mass must also be considered.Fatty infiltration of the liver. Patient admitted to med/surg with diagnosis of acute gallstone pancreatitis and cholelithiasis. GI and surgery were consulted . Started on IVF and pain management . MRCP showed no CBD stone so no ERCP need to be done. Patient cinically improved lipase and LFTs trended down.so he underwent Lap Cholecystectomy 03/06. Pt had persistent fever despite IV Zosyn so ID was consulted and switched to Meropenem IV. CT abdomen with PO and IV contrast repeated to rule out abscess/ necrosis of pancreas due to persistent fever. Repeat CT showed phlegmon. Patient received IV meropenem , fever resolved and pain much improved. patient hemodynamically stable, tolerating PO intake. Cleraed by surgery for discharge. Will discharge patinet home Follow up with Dr. Saeed in 1week . (1) Acute pancreatitis, likely Gallstone Pancreatitis, improved improving CT abdomen showed acute Pancreatitis and gallstones MRCP showed no CBD stone Surgery and GI consulted Lipase was markedly elevated to 17K on admission and now normalized No need for ERCP as per GI since lipase , LFT-s trending down and clinically patient improved underwent laparascopic cholecystectomy 03/06 Due to persistent fever ID was consulted and antibiotics changed from Zosyn to Meropenem. rpt CT abdomen and pelvis showed phlegmon in pancreas received pain management and meropenem IV with improvemnet of pain and resolution of fever Tolerating diet Cleraed by surgery for discharge Will d/c home Follow up with Dr. Saeed in 1 week (2) Cholelithiasis s/p Lap Cholecystectomy s/p lap cholecystectomy received pain management PRN Promote ambulation Tolerating regular diet cleared for d/c from Surgical standpoint (3) Abnormal LFTs improving Most likely secondary to Choledocholithiasis As per GI may have passed stones (4) DVT prophylaxis Lovenox Discharge Exam - Head Exam Head Exam: ATRAUMATIC, NORMOCEPHALIC - Eye Exam Eye Exam: EOMI, Normal appearance, PERRL Pupil Exam: NORMAL ACCOMODATION - ENT Exam ENT Exam: Mucous Membranes Moist, Normal Exam - Neck Exam Neck exam: Full Rom, Normal Inspection - Respiratory Exam Respiratory Exam: Clear to PA & Lateral, NORMAL BREATHING PATTERN. absent: Rales, Rhonchi, Wheezes - Cardiovascular Exam Cardiovascular Exam: REGULAR RHYTHM, RRR, +S1, +S2. absent: JVD - GI/Abdominal Exam GI & Abdominal Exam: Normal Bowel Sounds, Soft. absent: Distended, Guarding, Rebound, Tenderness - Rectal Exam Rectal Exam: Deferred - Extremities Exam Extremities exam: normal capillary refill, normal inspection, pedal pulses present - Back Exam Back exam: NORMAL INSPECTION - Neurological Exam Neurological exam: Alert, CN II-XII Intact, Oriented x3, Reflexes Normal - Psychiatric Exam Psychiatric exam: Normal Affect, Normal Mood - Skin Skin Exam: Dry, Intact, Normal Color, Warm Discharge Plan - Follow Up Plan Condition: STABLE Disposition: HOME/ ROUTINE Patient education suggested?: Yes Instructions: Pancreatitis (DC), Laparoscopic Cholecystectomy (DC) Referrals: [facility] [place] [Outside] True Saeed MD [Staff Provider] -
--- NOTE | 2017-03-10 13:47 | CP.PCM.PN ---
Subjective - Date & Time of Evaluation Date of Evaluation: 03/10/17 Time of Evaluation: 06:00 - Subjective Subjective: AFEBRILE LESS PAIN Objective - Vital Signs/Intake and Output Vital Signs (last 24 hours): Temp Pulse Resp BP Pulse Ox 98.4 F 78 20 117/81 97 03/10/17 07:47 03/10/17 07:47 03/10/17 07:47 03/10/17 07:47 03/10/17 07:47 - Medications Medications: Current Medications Acetaminophen (Tylenol 650 Mg Supp) 650 mg [place] Q6 PRN PRN Reason: Fever >100.4 F Last Admin: 03/03/17 08:34 Dose: 650 mg Acetaminophen (Tylenol 325mg Tab) 650 mg PO Q6 PRN PRN Reason: Fever >100.4 F Last Admin: 03/08/17 16:45 Dose: 650 mg Enoxaparin Sodium (Lovenox) 40 mg SC DAILY [facility] PRN Reason: Protocol Last Admin: 03/10/17 08:27 Dose: 40 mg Sodium Chloride (Sodium Chloride 0.9%) 1,000 mls @ 200 mls/hr IV .Q5H [facility] Last Admin: 03/10/17 12:11 Dose: Not Given Meropenem 1 gm/ Sodium (Chloride) 100 mls @ 100 mls/hr IVPB Q8 [facility] Last Admin: 03/10/17 08:26 Dose: 100 mls/hr Morphine Sulfate (Morphine) 2 mg IVP Q4 PRN PRN Reason: Pain, severe (8-10) Ondansetron HCl (Zofran Inj) 4 mg IVP Q4H PRN PRN Reason: Nausea/Vomiting Oxycodone/Acetaminophen (Percocet 5/325 Mg Tab) 1 tab PO Q4 PRN PRN Reason: Pain, moderate (4-7) Stop: 03/12/17 16:07 Last Admin: 03/10/17 11:42 Dose: 1 tab Pantoprazole Sodium (Protonix Ec Tab) 40 mg PO DAILY [facility] Last Admin: 03/10/17 08:27 Dose: 40 mg - Labs Labs: 03/10/17 05:55 03/10/17 05:55 PT 11.5 SECONDS (9.6-11.2) H 03/02/17 06:30 INR 1.11 (0.92-1.08) H 03/02/17 06:30 APTT 23.4 SECONDS (23.3-32.5) 03/02/17 06:30 - Constitutional Appears: Non-toxic, Chronically Ill - Head Exam Head Exam: NORMOCEPHALIC - Eye Exam Eye Exam: PERRL. absent: Scleral icterus - ENT Exam ENT Exam: Mucous Membranes Dry, Normal External Ear Exam - Neck Exam Neck Exam: absent: Lymphadenopathy - Respiratory Exam Respiratory Exam: Decreased Breath Sounds - Cardiovascular Exam Cardiovascular Exam: REGULAR RHYTHM, +S1, +S2 - GI/Abdominal Exam GI & Abdominal Exam: Distended, Soft. absent: Tenderness - Rectal Exam Rectal Exam: Deferred - Exam Exam: NORMAL INSPECTION - Extremities Exam Extremities Exam: absent: Calf Tenderness, Pedal Edema - Back Exam Back Exam: absent: CVA tenderness (L), CVA tenderness (R), paraspinal tenderness - Neurological Exam Neurological Exam: Alert, Awake, Oriented x3 - Psychiatric Exam Psychiatric exam: Normal Mood - Skin Skin Exam: Dry Assessment and Plan (1) Fever Status: Acute (2) Fever Status: Acute (3) Abnormal LFTs Status: Acute (4) Acute pancreatitis Status: Acute (5) Cholelithiasis Status: Acute (6) DVT prophylaxis Status: Acute (7) Pancreatitis Status: Acute
== END 2017-03-10 14:52 | disposition home or self-care (01) | DRG 419 ==
LOC: H.ER 14:23 → H.EROBSV 14:56 → OBSVTOIN 14:56 → H.ERHOLD 17:55 → H.MEDSURG1 20:39
PROVIDERS: ADMIT Emergency Medicine
PROC: 0FT44ZZ Resection of Gallbladder, Percutaneous Endoscopic Approach (ICD-10-PCS; principal; 2017-03-06 11:00)
DX: K85.10 Biliary acute pancreatitis without necrosis or infection (principal); K80.70 Calculus of gallbladder and bile duct without cholecystitis without obstruction; K76.0 Fatty (change of) liver, not elsewhere classified; K29.70 Gastritis, unspecified, without bleeding; R50.82 Postprocedural fever; Z87.891 Personal history of nicotine dependence

== ENCOUNTER 2017-10-04 16:34 | Emergency (ER) | payer OTHER ==
[2017-10-04 16:34] VITALS: BMI 31.6
[2017-10-04 16:59] VITALS: BP 153/84; PULSE 132; RESP 20; TEMP 99; O2SAT 96
--- NOTE | 2017-10-04 17:34 | ED PDOC ---
HPI: CCC, URI, Sore Throat Time Seen by Provider: 10/04/17 17:08 Chief Complaint (Nursing): ENT Problem Chief Complaint (Provider): epistaxis History Per: Patient History/Exam Limitations: no limitations Onset/Duration Of Symptoms: Intermittent Episodes (since yesterday) Current Symptoms Are (Timing): Still Present Additional Complaint(s): Sidney Kelly is a 42-year-old male who presents to the emergency department complaining of a nose bleed from the right nare, occurring intermittently since yesterday. He was evaluated at an urgent care today at 11AM and the bleeding stopped after packing was placed in the right nare. Patient reports that bleeding stopped for 2-3 hours at home but then resumed, prompting this visit. He denies history of frequent nosebleeds and is not taking any blood thinners. Initially, the bleeding began while patient was resting. PMD: None Past Medical History Reviewed: Historical Data, Nursing Documentation, Vital Signs Vital Signs: Last Vital Signs Temp 99 F 10/04/17 16:56 Pulse 132 H 10/04/17 16:56 Resp 20 10/04/17 16:56 BP 153/84 H 10/04/17 16:56 Pulse Ox 96 10/04/17 17:50 - Medical History PMH: Gastritis - Surgical History Surgical History: Cholecystectomy - Family History Family History: States: No Known Family Hx - Living Arrangements Living Arrangements: With Family - Social History Current smoker - smoking cessation education provided: No Alcohol: None Drugs: Denies - Home Medications Home Medications: Ambulatory Orders Medication Instructions Recorded No Known Home Med 03/01/17 - Allergies Allergies/Adverse Reactions: Allergies Allergy/AdvReac Type Severity Reaction Status Date / Time No Known Allergies Allergy Verified 07/24/17 10:54 Review of Systems ROS Statement: Except As Marked, All Systems Reviewed And Found Negative ENT: Positive for: Other (Nose bleed from right nare) Neurological: Negative for: Headache, Dizziness Physical Exam - Reviewed Nursing Documentation Reviewed: Yes Vital Signs Reviewed: Yes - Physical Exam Appears: Positive for: Well, Non-toxic, No Acute Distress Head Exam: Positive for: ATRAUMATIC, NORMAL INSPECTION, NORMOCEPHALIC Skin: Positive for: Normal Color Eye Exam: Positive for: Normal appearance ENT: Positive for: Other (Right nare with mild active bleeding after current packing removed. Left nare is clear. No septal hematoma.) Cardiovascular/Chest: Positive for: Regular Rate, Rhythm Respiratory: Positive for: Normal Breath Sounds Extremity: Positive for: Normal ROM Neurologic/Psych: Positive for: Alert, Oriented - ECG O2 Sat by Pulse Oximetry: 96 (RA) Pulse Ox Interpretation: Normal Medical Decision Making Medical Decision Making: Time: 17:30 Initial Impression: 42 year old male with nosebleed Initial Plan: --Rhino Rocket placed to right nare (see procedure). Bleeding controlled. Procedure: 4.5 cm Rhino Rocket was inserted into right nare, and filled with 2cc of air via 10cc syringe. Patient tolerated procedure well, without difficulty. Good bleeding control achieved. Patient is medically stable for discharge home. Advised to follow up with ENT or return to the ER in 24 hours for removal of Rhino Rocket. Patient can take Tylenol or Advil for pain as needed. There is agreement to discharge plan. Return if symptoms persist or worsen. Scribe Attestation: Documented by Greta Doty, acting as a scribe for Barbara Michel PA-C Provider Scribe Attestation: All medical record entries made by the Scribe were at my direction and personally dictated by me. I have reviewed the chart and agree that the record accurately reflects my personal performance of the history, physical exam, medical decision making, and the department course for this patient. I have also personally directed, reviewed, and agree with the discharge instructions and disposition. Disposition - Clinical Impression Clinical Impression: Epistaxis - Patient ED Disposition Is Patient to be Admitted: No Counseled Patient/Family Regarding: Diagnosis, Need For Followup - Disposition Referrals: Alcon Gonzalez MD [Staff Provider] - Disposition: Routine/Home Disposition Time: 17:33 Condition: STABLE Additional Instructions: Keep packing in place, do not attempt to remove packing on your own. Follow up tomorrow with ear, nose and throat specialist or return to ED tomorrow if unable to follow up with specialist. Return sooner if acutely worse. Instructions: Nosebleed (ED) Forms: [employer] (Romansh)
== END 2017-10-04 17:53 | disposition home or self-care (01) ==
LOC: H.ER 16:34
DX: R04.0 Epistaxis (principal)

== ENCOUNTER 2018-08-27 09:56 | Emergency (ER) | payer OTHER ==
[2018-08-27 10:13] VITALS: BMI 32.9
[2018-08-27] MEDS ORDERED: Sodium Chloride 0.9% 1,000 ML IV STA (11:07)
--- NOTE | 2018-08-27 12:10 | ED PDOC ---
HPI: Abdomen Time Seen by Provider: 08/27/18 10:38 Chief Complaint (Nursing): Abdominal Pain History Per: Patient, Intellectual Property Legal Assistant ([place]ian #[id number]) Additional Complaint(s): Pt. states for the past 5 months he's been having intermittent RUQ abdominal pain. Yesterday morning pain became worse and is now constant. Further reports earlier this month he went to a clinic for the same complaint and was advised to get an US. Pt. was given an Rx for a RUQ US for elevated LFTs. States he had a cholecystectomy done 1 years ago. Last BM was today and was normal but hard. Denies N/V/D, fever, post prandial pain, melena, hematochezia, BRBPR, hematemesis, chest pain. Past Medical History Reviewed: Historical Data, Nursing Documentation, Vital Signs Vital Signs: Last Vital Signs Temp 97.9 F 08/27/18 10:15 Pulse 98 H 08/27/18 10:15 Resp 19 08/27/18 10:15 BP 144/89 08/27/18 10:15 Pulse Ox 98 08/27/18 10:15 - Medical History PMH: Gastritis Denies: HTN, Chronic Kidney Disease - Surgical History Surgical History: Cholecystectomy - Family History Family History: States: No Known Family Hx - Immunization History Hx Tetanus Toxoid Vaccination: No Hx Influenza Vaccination: No Hx Pneumococcal Vaccination: No - Home Medications Home Medications: Ambulatory Orders Medication Instructions Recorded Famotidine [Pepcid] 20 mg PO DAILY PRN #10 tab 08/27/18 - Allergies Allergies/Adverse Reactions: Allergies Allergy/AdvReac Type Severity Reaction Status Date / Time No Known Allergies Allergy Verified 07/24/17 10:54 Review of Systems ROS Statement: Except As Marked, All Systems Reviewed And Found Negative Gastrointestinal: Positive for: Abdominal Pain, Constipation Physical Exam - Physical Exam Appears: Positive for: Well, Non-toxic, No Acute Distress Skin: Positive for: Normal Color, Warm. Negative for: Rash, Jaundice Eye Exam: Positive for: Normal appearance. Negative for: Scleral icterus Cardiovascular/Chest: Positive for: Regular Rate, Rhythm Respiratory: Positive for: Normal Breath Sounds. Negative for: Respiratory Distress Gastrointestinal/Abdominal: Positive for: Normal Exam, Bowel Sounds, Soft, Other (Negative Youssef's sign). Negative for: Tenderness Back: Positive for: Normal Inspection. Negative for: L CVA Tenderness, R CVA Tenderness Neurologic/Psych: Positive for: Alert, Oriented (x3) - Laboratory Results Result Diagrams: 08/27/18 12:32 08/27/18 12:32 - ECG O2 Sat by Pulse Oximetry: 98 - Progress ED Course And Treament: Labs, Pepcid 20mg IV, IV NS bolus x 1, RUQ US, obstructive series ordered. On re-evaluation, pt. informed of US and blood results. Advised to decrease fat intake and to f/u with [facility]. Results were d/w patient using sodder #[id number] Disposition - Clinical Impression Clinical Impression: Hepatic steatosis, Abdominal pain - Patient ED Disposition Is Patient to be Admitted: No - Disposition Referrals: [facility] [Outside] Disposition: Routine/Home Disposition Time: 13:04 Condition: IMPROVED Prescriptions: Famotidine [Pepcid] 20 mg PO DAILY PRN #10 tab PRN Reason: abdominal pain Instructions: Nonalcoholic Fatty Liver Disease (DC) Forms: [employer] (Japanese) Print Language: ESTONIAN
--- NOTE | 2018-08-27 12:42 | US ---
Date of service: 08/27/2018 HISTORY: RUQ pain COMPARISON: None. TECHNIQUE: Sonographic evaluation of the right upper quadrant of the abdomen. FINDINGS: LIVER: Measures 13.8 cm in length. Diffusely increased echogenicity of the liver parenchyma. Consistent with fatty infiltration. No mass. No biliary ductal dilatation. GALLBLADDER: Status post cholecystectomy COMMON BILE DUCT: Measures 4 mm. No stones. No dilatation. PANCREAS: Unremarkable as visualized. No mass. No ductal dilatation. RIGHT KIDNEY: Measures 10.6 cm in length. Normal echogenicity. No calculus, mass, or hydronephrosis. AORTA: No aneurysmal dilatation. IVC: Unremarkable. OTHER FINDINGS: None . IMPRESSION: Fatty infiltration of the liver. Status post cholecystectomy. No evidence of biliary obstruction.
[2018-08-27 12:44] LABS: BASO # 0.1 K/uL (0.0-0.2); BASO % 1.1 % (0.0-2.0); EOS # 0.2 K/uL (0.0-0.7); HEMOGLOBIN 15.3 g/dL (12.0-18.0); LYMPH # 2.6 K/uL (1.0-4.3); LYMPH % 41.1 % (20.0-40.0); MEAN CELL VOLUME 89.5 fl (80.0-94.0); MEAN CORPUSCULAR HEMOGLOBIN 31.5 pg (27.0-31.0); MEAN CORPUSCULAR HGB CONC 35.2 g/dL (33.0-37.0); MONO # 0.4 K/uL (0.0-0.8); MONO % 6.9 % (0.0-10.0); NEUT % 47.9 % (50.0-75.0); NRBC % 0.2 % (0.0-0.0); RBC 4.86 Mil/uL (4.40-5.90); RED CELL DISTRIBUTION WIDTH 13.2 % (11.5-14.5); WHITE BLOOD COUNT 6.3 K/uL (4.8-10.8)
[2018-08-27 13:00] LABS: ALB/GLOB RATIO 1.1 (1.0-2.1); ALBUMIN 4.2 g/dL (3.5-5.0); ALT/SGPT 119 U/L (21-72); AST/SGOT 69 U/L (17-59); BLOOD UREA NITROGEN 13 mg/dl (9-20); CALCIUM 9.4 mg/dL (8.4-10.2); GFR NON-AFRICAN AMERICAN > 60; LIPASE 53 U/L (23-300)
[2018-08-27 13:12] LABS: SQUAMOUS EPITHIAL < 1 /hpf (0-5); URINE BILIRUBIN NEGATIVE (NEGATIVE); URINE BLOOD NEGATIVE (NEGATIVE); URINE CLARITY CLEAR (Clear); URINE COLOR YELLOW (YELLOW); URINE GLUCOSE (UA) NEG (Normal); URINE LEUKOCYTE ESTERASE NEG Leu/uL (Negative); URINE PROTEIN NEGATIVE (NEGATIVE); URINE UROBILINOGEN 0.2-1.0 mg/dL (0.2-1.0)
--- NOTE | 2018-08-27 13:50 | RAD ---
Date of service: 08/27/2018 PROCEDURE: Radiographs of the chest and abdomen (obstructive series) HISTORY: RUQ abd pain COMPARISON: No prior. TECHNIQUE: AP radiograph of the chest, with upright and supine radiographs of the abdomen. FINDINGS: CHEST: Lungs: Clear. Cardiovascular: Normal size heart. No pulmonary vascular congestion. Pleura: No pleural fluid. No pneumothorax. Other findings: None. ABDOMEN AND PELVIS: Bowel: Unremarkable bowel gas pattern. No evidence of mechanical obstruction. Free air: None. Bones: Unremarkable. Other findings: Surgical clips in right upper quadrant of abdomen presumed related to prior cholecystectomy. IMPRESSION: No evidence of mechanical bowel obstruction.
[2018-08-27 14:56] VITALS: BP 137/82; PULSE 81; RESP 17; TEMP 98.2; O2SAT 99
== END 2018-08-27 14:56 | disposition home or self-care (01) ==
LOC: H.ER 09:56
DX: K76.0 Fatty (change of) liver, not elsewhere classified (principal); R10.11 Right upper quadrant pain; Z90.49 Acquired absence of other specified parts of digestive tract
CPT/HCPCS: 74022; 76705; 80053; 80320; 81003; 83690; 85025; 96374; 99284; J7030